=== PATIENT | female | born 1965 | race Caucasian/White ===

== ENCOUNTER 2018-11-27 09:58 | Inpatient (IN) ==
[2018-11-27] MEDS ORDERED: NS 1,000 ML IV ONE ×2 (10:14→12:03)
[2018-11-27] MEDS ORDERED: CARDIZEM IV ONE ×3 (10:24→11:36)
--- NOTE | 2018-11-27 10:39 | Diag Imaging Result Doc PS360 ---
CHEST-2 VIEWS - 11/27/2018 INDICATION: poss pneumonia COMPARISON: 11/09/2015 FINDINGS: There is significant infiltrate in the lingula. Heart size is normal. No pneumothorax or pleural effusion. IMPRESSION: Lingular pneumonia. Electronically signed by Virgil Boss 11/27/2018 10:36 AM
[2018-11-27 10:52] LABS: BASO# 0.04 X1000 (0.0-0.2); BASO% 0.2 % (0.0-0.8); EOS# 0.31 X1000 (0.0-0.7); EOS% 1.8 % (0.0-10.0); HEMATOCRIT 29.1 % (37.0-47.0); HEMOGLOBIN 8.7 g/dL (12.0-16.0); IMM GRAN# 0.06 X1000 (0.0-0.04); IMM GRAN% 0.3 % (0.0-0.5); LYMPH# 2.29 X1000 (1.2-3.4); LYMPH% 13.1 % (20.5-51.1); MCH 23.6 PG (27-31); MCHC 29.9 g/dL (33-37); MCV 79.1 FL (81-99); MONO# 0.99 X1000 (0.11-0.59); MONO% 5.7 % (1.7-9.3); MPV 10.7 FL (7.4-10.4); NEUT# 13.76 X1000 (1.4-6.5); NEUT% 78.9 % (42.2-75.2); PLT 269 X1000 (130-400); RBC 3.68 XMIL (4.2-5.4); RDW 15.6 % (11.5-14.5); WBC 17.45 X1000 (4.8-10.8)
[2018-11-27] MEDS ORDERED: VANCOMYCIN 1 GM/NS 1 GM/250 ML IVPB IV ONE (11:01)
[2018-11-27] MEDS ORDERED: ZOSYN 3.375 GM in NS 50 ML IV ONE (11:01)
[2018-11-27 11:17] LABS: ALBUMIN 3.7 g/dL (3.5-5.0); CALCIUM 9.1 mg/dL (8.8-10.2); CREATININE 1.7 mg/dL (0.5-0.9); POTASSIUM 4.8 mmol/L (3.5-5.1); TOTAL BILIRUBIN 0.34 mg/dL (0.20-1.00); TOTAL PROTEIN 7.5 g/dL (6.3-8.3)
[2018-11-27 11:38] LABS: INR 1.57
[2018-11-27 11:39] LABS: PTT 45.9 Seconds (22.3-41.8)
--- NOTE | 2018-11-27 11:42 | PROVIDER DOCUMENTATION ---
This chart was entered by Monika Ward Scribe, acting as scribe for Moses Irwin PA. HPI-General Adult - General Chief Complaint: Flu Symptoms Stated Complaint: PNEUMONIA DR-REF Time Seen by Provider: 11/27/18 10:12 Source: patient Allergies/Adverse Reactions: Patient Allergies Allergy/AdvReac Type Severity Reaction Status Date / Time cephalexin monohydrate * Allergy Intermediate RASH Verified 02/25/13 08:17 [From Keflex] Home Medications: Home Medication List Medication Instructions Recorded Confirmed Last Taken Type Bupropion HCl [Bupropion Xl] 150 mg PO QAM 02/25/13 11/09/15 11/09/15 07:30 History Venlafaxine E.r. [Effexor Xr] 150 mg PO QAM 02/25/13 11/09/15 11/09/15 07:30 History Digoxin [Lanoxin] 250 microgm PO DAILY #30 tablet 05/08/15 11/09/15 11/09/15 07: 30 Rx Rivaroxaban [Xarelto] 20 mg PO WSUPPER #30 tablet 05/08/15 11/09/15 11/08/15 Rx Magnesium 1 tab PO BID 11/09/15 11/09/15 11/09/15 07:30 History ATORVAstatin [Lipitor] 20 mg PO QHS #30 tablet 11/14/15 Unknown Rx Carvedilol [Coreg] 25 mg PO BID #60 tablet 11/14/15 Unknown Rx Insulin Glargine,Hum.rec.anlog 90 unit SQ HS #30 insuln.pen 11/14/15 Unknown Rx [Lantus Solostar] Insulin Lispro [Humalog Kwikpen] 25 unit SQ TID #90 insuln.pen 11/14/15 Unknown Rx LISINOpril [Prinivil] 20 mg PO QAM #30 tablet 11/14/15 Unknown Rx - History of Present Illness -Gen Adult Nature of Presenting Problems: 53 y/o female presents to ED with lightheadedness and cough onset 2 days ago. Pt reports she was seen at urgent care this morning, but was referred to ED after negative flu test, cxr that showed L lower lobe pneumonia, and elevated WBC. Pt is alert and oriented. Location of Pain/Injury: reports: none Pain Radiation: reports: no radiation Quality of Pain: reports: none Severity: reports: moderate Onset/Duration: reports: 2 days ago Timing: reports: still present, getting worse Context/Activities at Onset: reports: none Modifying Factors: improves with: nothing Associated Symptoms: reports: cough, other (lightheaded) Similar Symptoms Previously?: No Recently seen or treated by another doctor?: Yes (urgent care just [facility]) Review of Systems - Adult - REVIEW OF SYSTEMS - ADULT Constitutional: denies: chills, fever Eyes: reports: no symptoms reported Ears, Nose, Mouth & Throat: reports: no symptoms reported Cardiovascular: denies: chest pain, palpitations Respiratory: reports: cough. denies: shortness of breath Gastrointestinal: denies: abdominal pain, diarrhea, nausea, vomiting Genitourinary: reports: no symptoms reported Musculoskeletal: denies: back pain, joint pain Integumentary: reports: no symptoms reported Neurological: reports: other (lightheaded). denies: dizziness/vertigo, seizure Psychiatric: reports: no symptoms reported Endocrine: reports: no symptoms reported Hematologic/Lymphatic: reports: no symptoms reported Allergic/Immunologic: reports: no symptoms reported All Other Systems: Reviewed and Negative Past History - Adult - PAST MEDICAL HISTORY-ADULT Review of Records: reports: Old Records Reviewed, Nursing Assessment Review, Medications Reviewed Major Childhood Illnesses: reports: denies history Cardiovascular: reports: A-Fib, HTN Psychiatric: reports: depression Endocrine/Immune: reports: Diabetes - PRIOR SURGERIES/PROCEDURES Surgical/Procedure History: reports: cholecystectomy, hysterectomy, BTL, orthopedic (extremity) (bilateral wrist), back/neck (back x2) - IMMUNIZATION STATUS Childhood Immunizations: See Nurse Assessment Flu Vaccine: See Nurse Assessment - FAMILY HISTORY Family History: reviewed, not pertinent - SOCIAL HISTORY Smoking: non-smoker Substance Use: none/never Alcohol Use Frequency: never Living Situation: family Physical Exam-General - PHYSICAL EXAM-ADULT Initial Vital Signs Reviewed: Yes - CONSTITUTIONAL General Appearance: appears well, alert, no apparent distress - EYES Eyes: PERRL/EOMI, pink conjunctivae - HEAD, EARS, NOSE, MOUTH & THROAT HENMT: normocephalic/atraumatic, moist mucous membranes, normal ENT inspection - NECK Neck: non-tender, full range of motion - RESPIRATORY Respiratory: chest non-tender, normal breath sounds, rhonchi - CARDIOVASCULAR Cardiovascular: tachycardia (afib/RVR) - GASTROINTESTINAL (ABDOMEN) Abdominal Exam: normal bowel sounds, non tender, soft - MUSCULOSKELETAL Back Exam: normal inspection, no CVA tenderness Extremity: normal range of motion, non-tender, normal gait - SKIN Integumentary: normal color, warm/dry - NEUROLOGIC Neurologic: grossly normal - PSYCHIATRIC Psych/Mental Status: normal mood/affect, normal thought content, normal thought process Progress - PLAN OF CARE/RESULTS Progress/Plan/Lab Results: Vital Signs - 8 hr 11/27/18 10:05 Temperature 97.8 F Pulse Rate 143 H Respiratory Rate 24 Blood Pressure 123/72 O2 Sat by Pulse Oximetry 98 Orders Category Date Time Status Saline Loc NOW Care 11/27/18 10:13 Active CHEST-2 VIEWS [RAD] Stat Exams 11/27/18 10:14 Ordered BLOOD CULTURE [BLDCUL] Stat Lab 11/27/18 10:14 Uncollected CBC WITH ELECTRONIC DIFF [HEME] Stat Lab 11/27/18 10:13 Uncollected CK PROFILE [SP CHEM] Stat Lab 11/27/18 10:13 Ordered COMPREHENSIVE METABOLIC PANEL [CHEM] Stat Lab 11/27/18 10:13 Uncollected LACTATE, PLASMA [CHEM] Stat Lab 11/27/18 10:14 Uncollected PROTIME WITH INR [COAG] Stat Lab 11/27/18 10:14 Ordered PTT [COAG] Stat Lab 11/27/18 10:14 Ordered 0.9% Sodium Chloride Inj [Ns] 1,000 ml Med 11/27/18 10:14 Active IV 999 mls/hr Diltiazem [Cardizem] Med 11/27/18 10:24 Discontinued 10 mg IV NOW ONE EKG [EKG] Stat Ther 11/27/18 10:13 Ordered Laboratory Tests 11/27/18 11/27/18 10:20 10:20 WBC 17.45 H RBC 3.68 L Hgb 8.7 L Hct 29.1 L MCV 79.1 L MCH 23.6 L MCHC 29.9 L RDW Std Deviation 15.6 H Plt Count 269 MPV 10.7 H Immature Gran % (Auto) 0.3 Neut % (Auto) 78.9 H Lymph % (Auto) 13.1 L [place] % (Auto) 5.7 Eos % (Auto) 1.8 Baso % (Auto) 0.2 Immature Gran # (Auto) 0.06 H Neut # (Auto) 13.76 H Lymph # (Auto) 2.29 [place] # (Auto) 0.99 H Eos # (Auto) 0.31 Baso # (Auto) 0.04 Plasma Lactate 2.0 Pt has lingular PNA and also A-fib AVR. Will admit to hospitalist service. Discussed case c Dr. Amador who is in agreement c order and plan or care. Result Diagrams: 11/27/18 10:20 11/27/18 10:20 - EKG 1 Time of EKG reading by physician:: 10:20 EKG Read and Signed by:: Frandy Amador EKG Interpretation (*Must complete 3 of following elements*): Abnormal Rate: 132 Rhythm: Afib w/ RVR [place]: normal QRS: normal [place] Interval: normal ST Wave: normal - XRAY 1 XRAY Study: Chest Impression: Abnormal (FINDINGS: There is significant infiltrate in the lingula. Heart size is normal. No pneumothorax or pleural effusion. IMPRESSION: Lingular pneumonia. Electronically signed by Virgil Boss 11/27/2018 10:36 AM) - CONSULTS/PCP/HOSPITALIST Notification #1 *Consult/PCP/Hospitalist*: REJI Schmidt for hospitalist Time Discussed: 11:36 Reason/Comments: Pneumonia, afib RVR Consult Disposition: Admit Departure - Departure Date of Disposition Decision: 11/27/18 Time of Disposition Decision: 11:36 DIAGNOSIS: Atrial fibrillation with RVR Pneumonia Qualifiers: Pneumonia type: due to unspecified organism Laterality: left Lung location: unspecified part of lung Qualified Code(s): J18.9 - Pneumonia, unspecified organism Disposition: ADMITTED INPATIENT 09 Certified Medical Emergency: Emergent Condition: Fair Additional Freetext Instructions: ED Follow Up Instructions: You have been treated by a care provider in the Emergency Department. These instructions are being provided to you so you can have an understanding of how to care for yourself upon discharge. Upon discharge from the Emergency Department, you are responsible for making arrangements for follow-up care by a physician of your choice. Take all prescribed medications as directed. Return to the Emergency Department immediately for any new or worsening symptoms. You may call the Physician Referral phone number at [phone] to obtain a list of Physicians who are taking new patients. Referrals and Follow-Ups: None,PCP [NON-STAFF PROVIDER] - Discharge Education: Atrial Fibrillation, [id number] - Critical Care Note This patient required my direct & personal management of CC.: No Attestation - Physician/ TYRELL Attestation Patient care was provided by Advanced Practice Provider:: Yes Advanced Practice Provider:: Moses Irwin Advanced Practice Provider documentation review:: The Mid-level provider documentation, treatment plan and medical decision making was reviewed by the physician who agrees with all treatment and medical decision making by the MLP. The physician spent face to face time with patient:: No Advanced Practice Provider documentation review:: Supervising physician onsite and consulted in the evaluation and care of this patient. The physician did not have a face to face encounter with the patient. This chart was documented by the indicated scribe, (Monika Ward Scribe) and accurately reflects the services I performed and decisions made by me, Moses Irwin PA, as attested by the provider's signature.
[2018-11-27 12:37] LABS: HEMOGLOBIN A1C 6.3 % (4.8-6.0)
[2018-11-27 12:38] LABS: URINE SOURCE CLEAN CATCH
[2018-11-27] MEDS: CARDIZEM 125 MG in NS 100 ML IV SCH ×2 (12:56→20:31)
[2018-11-27 13:11] LABS: BILIRUBIN URINE NEGATIVE (NEGATIVE); BLOOD URINE SMALL (NEGATIVE); COLOR YELLOW; GLUCOSE URINE NEGATIVE (NEGATIVE); KETONE URINE NEGATIVE (NEGATIVE); LEUKOCYTES URINE SMALL (NEGATIVE); NITRITE URINE NEGATIVE (NEGATIVE); PROTEIN URINE 300 mg/dL (NEGATIVE); SP GRAVITY URINE 1.016; TURBIDITY URINE HAZY (CLEAR); UROBILINOGEN URINE NORMAL (NORMAL)
[2018-11-27 13:12] LABS: UR EPITHELIAL CELLS >10 /HPF (<10); URINE BACTERIA NEGATIVE /HPF; URINE RBC <10 /HPF (<10); URINE WBC <10 /HPF (<10)
--- NOTE | 2018-11-27 15:19 | HISTORY AND PHYSICAL ---
PRIMARY CARE PROVIDER: REJI Oglesby CHIEF COMPLAINT: Lightheadedness and cough. HISTORY OF PRESENT ILLNESS: She was treated for bronchitis 2 weeks ago with antibiotics and steroids, she failed to improve with symptoms, and over the past few days she has been having lightheadedness, cough, a subjective fever, and muscle aches and came to a local Urgent Care who performed an x-ray and found that she had pneumonia and heart rate was in the 140s. Their recommendation was for her to come to the closest E.R. and she came to our facility. In the E.R. she was found to have lingular pneumonia on chest x-ray and also found to be in atrial fibrillation with RVR. She carries a history of paroxysmal atrial fibrillation and has had multiple ablations. She also has type 2 diabetes, hypothyroidism, and morbid obesity. Cultures have been obtained and she has been started on broad-spectrum antibiotics. She will be admitted for further treatment and evaluation. PAST MEDICAL HISTORY: 1. Chronic kidney disease, she sees Dr. Mcghee for CKD looks to be stage 3 or 4. 2. Paroxysmal atrial fibrillation status post multiple ablations, followed by Dr. Woodson. 3. Type 2 diabetes requiring insulin. 4. Essential hypertension. 5. Morbid obesity. SURGICAL HISTORY: She has had ablations in the past, surgery on both wrists, back surgery times 2, tubal ligation, hysterectomy, and cholecystectomy. SOCIAL HISTORY: She denies tobacco, alcohol, or drug use. She is . Her is at the bedside. She is on disability. FAMILY HISTORY: Father from a [place] in his 80s. Mother from metastatic pancreatic cancer. ALLERGIES: Keflex. HOME MEDICATIONS: Home medications have not been compiled by the nursing staff as of yet. REVIEW OF SYSTEMS: A 14 point review of systems was obtained and found to be negative with the exception of the HPI. PHYSICAL EXAMINATION: VITAL SIGNS: Blood pressure is 126/73, heart rate 129, respiratory rate 26, O2 sat 99% on nasal cannula, and temperature 97.8. GENERAL: Morbidly obese female lying in a hospital in no acute distress. NEUROLOGIC: Awake, alert, and oriented. Follows commands. No focal deficits. HEENT: The head is atraumatic and normocephalic. Her pupils are equal, round, and reactive to light. Oral mucosa is moist. Posterior oropharynx is erythematous but no pustules are noted. NECK: Anterior cervical lymphadenopathy is appreciated. There is no JVD. CHEST: Essentially clear to auscultation bilaterally. CV: Tachy and irregular. S1, S2 is noted. GI: Soft, nondistended, and nontender. Bowel sounds are positive. EXTREMITIES: No edema. Pulses are 2+ bilaterally. DIAGNOSTIC DATA: Chest x-ray shows lingular pneumonia. EKG shows atrial fibrillation with RVR. WBC is 17.45, hemoglobin 8.7, hematocrit 29.1, MCV 79.1, and platelet count 269. INR is 1.57. Sodium is 139, potassium 4.8, chloride 101, CO2 21, anion gap 17, BUN 43, creatinine 1.7, glucose 135, hemoglobin A1c 6.3, calcium 9.1, AST 9, ALT 18, ALK PHOS 115, and albumin 3.7. UA is pending. ASSESSMENT AND PLAN: 1. Community-acquired pneumonia: Blood cultures have been obtained. We will start antibiotics renally dosed. Continue IV fluids, breathing treatments, and aggressive pulmonary toilet. Check a chest x-ray in the morning. 2. Paroxysmal atrial fibrillation with rapid ventricular response: Cardizem bolus and drip have been start. She denies any chest pain. She is on home anticoagulation which we will continue once reconciled. We will consult Cardiology. Check thyroid function. Monitor telemetry. 3. Diabetes mellitus: Pattern sugar sliding scale insulin. A1c reveals adequate control of her glucose. 4. Chronic kidney disease: Creatinine appears to be at baseline. We will continue IV fluids and avoidance of any nephrotoxins. We will continue to monitor her electrolytes and fluid volume status. 5. Microcytic anemia: We will check iron studies and treat accordingly. She denies any blood loss. 6. Deep vein thrombosis prophylaxis with novel anticoagulant which she takes at home. Further recommendations to follow. Dictated by REJI Wiggins for Tierra Osborne MD cc: REJI Wiggins MD Amanda K. Anderson, CRNP I performed a face to face encounter on the patient. I reviewed the labs and imaging on the patient. I agree with the H&P as dictated. The patient presented to the hospital with a chief complaint of a productive cough and weakness. In the ER, a chest x ray was done which showed pneumonia. The patient was also noted to be in atrial fibrillation with rvr. On exam, the patient is alert and oriented x 4. Her breath sounds are coarse with diminished breath sounds at the bases. Her heart is irregularly irregular on auscultation. The patient has pneumonia and afib with rvr. She will be started on a cardizem drip and cardiology will be consulted. Blood and sputum cultures have been obtained and the patient will be started on broad spectrum antibiotics. The patient will be admitted to CICU. SHRUTHI
[2018-11-27] MEDS: XOPENEX NEB INH SCH ×3 (15:23→23:30)
[2018-11-27] MEDS ORDERED: LANOXIN IV ONE ×2 (16:04→18:04)
[2018-11-27] MEDS: ZOSYN 2.25 GM in NS 50 ML IV SCH (20:00)
[2018-11-28] MEDS: ZOSYN 2.25 GM in NS 50 ML IV SCH ×3 (03:10→20:59)
[2018-11-28] MEDS: XOPENEX NEB INH SCH ×6 (03:42→23:46)
[2018-11-28] MEDS: HUMALOG SUBQ SCH ×7 (05:39→21:01)
[2018-11-28] MEDS: CARDIZEM 125 MG in NS 100 ML IV SCH (05:39)
[2018-11-28 05:58] LABS: BASO# 0.05 X1000 (0.0-0.2); BASO% 0.4 % (0.0-0.8); EOS# 0.54 X1000 (0.0-0.7); HEMATOCRIT 26.6 % (37.0-47.0); HEMOGLOBIN 7.9 g/dL (12.0-16.0); IMM GRAN# 0.03 X1000 (0.0-0.04); IMM GRAN% 0.2 % (0.0-0.5); LYMPH# 2.55 X1000 (1.2-3.4); MCH 23.7 PG (27-31); MCHC 29.7 g/dL (33-37); MCV 79.6 FL (81-99); MONO# 0.81 X1000 (0.11-0.59); MPV 10.3 FL (7.4-10.4); NEUT# 9.44 X1000 (1.4-6.5); NEUT% 70.4 % (42.2-75.2); PLT 250 X1000 (130-400); RBC 3.34 XMIL (4.2-5.4); RDW 15.5 % (11.5-14.5); WBC 13.42 X1000 (4.8-10.8)
[2018-11-28 06:22] LABS: CALCIUM 7.9 mg/dL (8.8-10.2); CREATININE 1.8 mg/dL (0.5-0.9); POTASSIUM 4.5 mmol/L (3.5-5.1)
[2018-11-28 07:07] LABS: FERRITIN 154 ng/mL (13-150)
[2018-11-28] MEDS ORDERED: ROBITUSSIN-DM PO PRN (09:05)
[2018-11-28] MEDS: ZYVOX 600 MG/D5W 600 MG/300 ML IVPB IV SCH ×2 (09:25→21:00)
[2018-11-28] MEDS ORDERED: VICTOZA SUBQ SCH (10:00)
[2018-11-28] MEDS: ICAR-C PO SCH ×2 (10:59→21:01)
[2018-11-28] MEDS ORDERED: INSULIN PEN NEEDLES ONE (11:07)
[2018-11-28] MEDS: TESSALON PO SCH ×2 (12:00→21:01)
--- NOTE | 2018-11-28 12:08 | Diag Imaging Result Doc PS360 ---
KNEE 3 VIEWS RIGHT - 11/28/2018 INDICATION: pain and swelling TECHNIQUE: Three views COMPARISON: None FINDINGS: There is advanced osteoarthritis of the knee. No fracture or dislocation. There is a moderate nonspecific joint effusion. There are probably varicose veins at the medial knee and leg. IMPRESSION: Nonspecific findings. Electronically signed by Virgil Boss 11/28/2018 12:06 PM
[2018-11-28] MEDS: TRANDATE PO SCH ×2 (14:28→21:00)
--- NOTE | 2018-11-28 14:56 | CARDIOLOGY CONSULTATION ---
DATE: 11/28/2018 REASON FOR CONSULT: Cardiology was consulted for atrial fibrillation. HISTORY OF PRESENT ILLNESS: Patient is diagnosed to have lingular pneumonia, is admitted, is on antibiotics as well as on Cardizem drip. The patient was treated for bronchitis 2 weeks with antibiotics and steroids. She failed to improve with her symptoms. She continues to have increasing episodes of shortness of breath. Chest x-ray revealed pneumonia with an elevated heart rate as well. Patient was sent to the emergency room and was admitted. The patient also was recently diagnosed to have worsening kidney disease and has an appointment to see Dr. Mcghee. She has chronic renal insufficiency. As far as atrial fibrillation is concerned, she has had an ablation done on 2 occasions in the last 3-4 years and has had multiple cardioversions and is followed by Dr. Woodson in our office. Since the last ablation about a year ago she has not had any palpitations. However, she does not perceive significant palpitations when she does have them. She has also undergone cardiac catheterization and cardioversions in the past. She has not been on any antiarrhythmic medications. She has only been on beta-blockers and has been taking Eliquis for the last few years. There is no obvious bleeding diathesis at the present time. A year and a half back she had some hematuria she states; however, no further bleeding since then. She does not perceive any palpitations; however, recently she has noticed some palpitations. She has not had any palpitations in the last year. She has shortness of breath which has worsened. She denies chest pain. PAST MEDICAL HISTORY: 1. She had a cardiac catheterization 11/13/2015 which revealed left main artery was normal. Left anterior descending artery was normal. Left ventricular circumflex, minor luminal irregularities. Right coronary artery, proximal 20 to 30% stenosis. Otherwise there was no significant abnormality noted. 2. She had an echocardiogram 11/10/2015 which revealed an ejection fraction of 55 to 60% at that time. She also had a transesophageal echocardiogram and had an ejection fraction of 45 to 50% in 2016 and she had undergone cardioversion at that time. 3. Two ablations done at [facility]. 4. Cardioversions in the past. 5. Diabetes. 6. Renal insufficiency. 7. Hypertension. 8. Morbid obesity. 9. Anemia. 10. The patient has had surgery on both wrists, back surgery, tubal ligation, hysterectomy, and cholecystectomy. SOCIAL HISTORY: She denies tobacco or illicit drug abuse. FAMILY HISTORY: Father from myocardial infarction in his 80s. HOME MEDICATIONS: Bupropion 150, Effexor 150, lisinopril 25 mg subcutaneously t.i.d., hydrochlorothiazide 25, labetalol 200 b.i.d., Victoza 1.8, Eliquis 5 mg p.o. b.i.d., atorvastatin 20, Lantus insulin, lisinopril 40. ALLERGIES: She is allergic to cephalexin. PHYSICAL EXAMINATION: Vital Signs: Blood pressure was 150/69. Cardiovascular system: First and second heart sounds were heard. There was no S3 gallop. The patient had an irregular heart rate. Respiratory System: Distant breath sounds with a few scattered wheezes. Abdomen: Obese, soft, nontender. There was no guarding or rigidity. Bowel sounds were heard. Central nervous system: Alert and oriented. Was moving all 4 extremities. Extremities: Examination of her extremities revealed no edema. Peripheral pulses were palpable. IMAGING: Chest x-ray revealed lingular pneumonia. LABORATORY EXAMINATION: Chemistry: Sodium 136, potassium 4.5, BUN 47, creatinine 1.8, glucose 219, magnesium 2.1. Iron was 19 with normal of 49-151, ferritin 1,541, unsaturated iron binding was 205. WBC 13.42, when she came in WBC was 15.45, hemoglobin 7.9 hematocrit 26, platelet count of 250,000. ASSESSMENT AND PLAN: Ms. Cathi Paiz is a 53-year-old lady who has paroxysmal atrial fibrillation, has undergone ablation on 2 occasions and has been tried on multiple cardiac medications for her atrial fibrillation in the past and also has undergone cardioversion. She has a history of diabetes hypertension, obesity, and has been taking her medications regularly. She has had bronchitis recently. Was admitted with increasing shortness of breath, has lingular pneumonia, and has been started on antibiotics. From a cardiac standpoint: 1. We will get an echocardiogram to reassess cardiac and valvular function. 2. She has been started on Cardizem drip. I will discontinue the Cardizem. Put her back on her labetalol 200 mg twice daily. As far as other medications are concerned, I will look at the echocardiogram and start her on antiarrhythmic medications if required. She had been tried on multiple medications, but if the rate is under control we will continue with that. 3. She has been on Eliquis since her ablations and has had 1 episode of hematuria within the last year. However, there is no obvious GI bleed. Her hemoglobin and hematocrit revealed a hemoglobin of 7.9. Platelet counts are normal. MCV is low. Concern is of iron deficiency anemia. Given this, we will get a stool occult blood. However, GI workup may be required given that she is on Eliquis and hemoglobin and hematocrit are low, suggestive of iron deficiency anemia. 4. She has an appointment to see Dr. Mcghee. She was recently diagnosed to have renal insufficiency. We will consult Dr. Mcghee. We will also get renal ultrasound. 5. Lingular pneumonia. Continue with her antibiotics. 6. She does not have any known coronary artery disease. She had a cardiac catheterization in 2016 and as mentioned above, was unremarkable. Thank you for the consult. We will follow hospital course. cc: Jose Rafael Santana MD
--- NOTE | 2018-11-28 15:06 | PROGRESS NOTE ---
DATE: 11/28/2018 SUBJECTIVE: The patient states that she feels a lot better today. She is currently on a Cardizem drip. OBJECTIVE: Vital Signs: Temperature 98.2 degrees, blood pressure 153/69, heart rate 101, respirations 17, O2 saturation is 96% on room air. General: This is a morbidly obese female sitting up in bed in no acute distress. Heart: S1 and S2 normal. Irregularly irregular rhythm. Lungs: Diminished breath sounds bilaterally. No wheezing. No rales. Abdomen : Positive bowel sounds. Soft, nontender, nondistended. Extremities: With 1+ edema bilaterally. The patient appears to have an effusion in her right knee. Neurologic: The patient is alert and oriented x3. She is able to move all 4 extremities. LABORATORY DATA: White blood cell count 13, hemoglobin 7.9, hematocrit 26, platelets 250,000. Sodium 136, potassium 4.5, chloride 100, CO2 of 19, BUN 47, creatinine 1.8, glucose 249. ASSESSMENT AND PLAN: 1. Pneumonia. Continue with antibiotic and bronchodilator therapy. 2. Atrial fibrillation. The patient is currently on a Cardizem drip. We will await further recommendations from the computer science intern. 3. Diabetes mellitus type 2. Continue on the current insulin regimen. 4. Morbid obesity. Aware. 5. Iron deficiency anemia. Will consult GI. Start Icar-C. 6. Chronic kidney disease stage 3. Stable. Monitor closely. 7. Deep vein thrombosis prophylaxis. We will restart the patient's Eliquis. cc: Tierra Osborne MD MTDD
[2018-11-28] MEDS: BASAGLAR SUBQ SCH (20:59)
[2018-11-28] MEDS: PROTONIX IV SCH (21:00)
[2018-11-28] MEDS: PERICOLACE PO SCH (21:01)
[2018-11-28] MEDS: ELIQUIS PO SCH (21:02)
[2018-11-29] MEDS: ZOSYN 2.25 GM in NS 50 ML IV SCH ×3 (03:13→20:22)
[2018-11-29] MEDS: XOPENEX NEB INH SCH ×6 (03:24→23:11)
[2018-11-29 05:32] LABS: BASO# 0.03 X1000 (0.0-0.2); BASO% 0.3 % (0.0-0.8); EOS# 0.57 X1000 (0.0-0.7); HEMATOCRIT 25.4 % (37.0-47.0); HEMOGLOBIN 7.6 g/dL (12.0-16.0); IMM GRAN# 0.04 X1000 (0.0-0.04); IMM GRAN% 0.4 % (0.0-0.5); LYMPH# 2.25 X1000 (1.2-3.4); LYMPH% 19.9 % (20.5-51.1); MCH 23.6 PG (27-31); MCHC 29.9 g/dL (33-37); MCV 78.9 FL (81-99); MONO% 6.2 % (1.7-9.3); NEUT# 7.71 X1000 (1.4-6.5); NEUT% 68.2 % (42.2-75.2); PLT 254 X1000 (130-400); RBC 3.22 XMIL (4.2-5.4); RDW 15.3 % (11.5-14.5)
[2018-11-29 05:39] LABS: CALCIUM 8.6 mg/dL (8.8-10.2); CREATININE 2.1 mg/dL (0.5-0.9); POTASSIUM 4.3 mmol/L (3.5-5.1)
[2018-11-29] MEDS: HUMALOG SUBQ SCH ×7 (06:00→20:23)
[2018-11-29] MEDS: WELLBUTRIN XL PO SCH (08:53)
[2018-11-29] MEDS: TRANDATE PO SCH ×2 (08:53→20:23)
[2018-11-29] MEDS: ELIQUIS PO SCH ×2 (08:53→20:23)
[2018-11-29] MEDS: CENTRUM SILVER PO SCH (08:53)
[2018-11-29] MEDS: PERICOLACE PO SCH ×2 (08:53→20:23)
[2018-11-29] MEDS: TESSALON PO SCH ×3 (08:53→17:19)
[2018-11-29] MEDS: ICAR-C PO SCH ×2 (08:53→20:23)
[2018-11-29] MEDS: ZYVOX 600 MG/D5W 600 MG/300 ML IVPB IV SCH ×2 (08:53→20:23)
--- NOTE | 2018-11-29 08:53 | GASTROENTEROLOGY CONSULTATION ---
DATE: 11/28/2018 REQUESTING PHYSICIAN: Dr. Osborne. PRIMARY CARE DOCTOR: REJI Oglesby. PRIMARY COMMUNICATION ELECTRONIC TECHNICIAN: Dr. Jerome. REASON FOR CONSULTATION: Iron-deficient anemia. HISTORY OF PRESENT ILLNESS: Ms. Paiz is a 53-year-old female who was admitted on 11/27/2018 for lightheadedness and cough. According to the patient, she has bronchitis for the last 2 weeks. She is being treated with antibiotics and steroids with minimal improvement. Her symptoms persisted and she developed lightheadedness, cough, subjective fever, muscle aches and she had gone to an urgent care where they ruled out flu. She was noted to be tachycardic in the heart rate of 140s and was suggested to come to the ER. In the ER, she was diagnosed with atrial fibrillation with RVR. The patient was also noted to have anemia. Her blood count on admission was 29.1. Her MCV of 79.1. Iron studies showed a low iron percentage and low iron level. The patient has been on blood thinners in the form of Eliquis twice daily at home. She denies any nausea, vomiting, vomiting blood or passing blood in the stools. She had a colonoscopy done about [address] Jerome[address] Gastroenterology for further management of anemia. PAST MEDICAL HISTORY: 1. Chronic kidney disease. 2. Paroxysmal atrial fibrillation, status post multiple ablations, followed by Dr. Woodson. 3. Type 2 diabetes. 4. Essential hypertension. 5. Morbid obesity. 6. Hypothyroidism. PAST SURGICAL HISTORY: Ablation for atrial fibrillation in the past. Surgery in both wrists, back surgery x 2, tubal ligation, hysterectomy, cholecystectomy. SOCIAL HISTORY: She denies any tobacco, alcohol, illicit drug use. She is . She is currently on disability. FAMILY HISTORY: Father from [place] in 80s. Mother from metastatic pancreatic cancer. ALLERGIES: Keflex. MEDICATIONS IN THE HOSPITAL: Include: 1. Eliquis 5 mg p.o. b.i.d. 2. Lipitor. 3. Tessalon. 4. Bupropion XL. 5. Robitussin DM. 6. Insulin glargine. 7. Humalog sliding scale. 8. Humalog 25 units t.i.d. 9. Iron C b.i.d. 10. Labetalol. 11. Xopenex. Multivitamin. 12. Protonix b.i.d. 13. Raia Colace twice, 2 capsules p.o. b.i.d. 14. Zosyn IV q.8. 15. Linezolid 600 mg IV q.12 hours. 16. She has gotten 1 dose of digoxin per Dr. Santana and Nils. She is currently on a diabetic diet. REVIEW OF SYSTEMS: Denies any fevers, rigors, chills, chest pain. She does complain of chest congestion, chronic coughing and she denies any vomiting or passing blood in the stools or black stools. She does not recall the results of the procedure of colonoscopy done [address] Jerome[address] She has a history of arthritis. Denies any neurologic complaints. PHYSICAL EXAMINATION: Vital Signs: Temp 98.2, pulse rate 113, respiratory rate 18, blood pressure 130/61, satting 90% on room air. Body weight of 284 pounds 8 ounces. BMI of 44.6 kg. General: Obese, lying in bed, in no acute distress. HEENT: Pale conjunctivae. No icterus. Pupils equal, reactive to light. Neck: Supple. Abdomen: Obese, soft, nontender, nondistended. No guarding or rebound. Extremities: No cyanosis, clubbing. Neurologic: She is alert, awake, oriented. LABS: Hemoglobin and hematocrit is 7.9 and 26.6, white count of 13.42, platelet count of 250,000, MCV of 79.6. Sodium 137, potassium 4.5, chloride 100, bicarb 19, anion gap 17, BUN of 42, creatinine 1, glucose of 157, calcium is 7.9, magnesium of 2.1. Iron level of 19%, saturation of 8%, ferritin 154. Total bilirubin is 0.34, AST 9, ALT 18, alkaline phosphatase 150, total protein is 7.2, albumin of 3.7, B12 of 85, folate of more than 40. Urinalysis showing positive protein, small blood, small leukocytes. Her blood cultures have been drawn on 11/27/2018. They are currently pending. Her flu screen was repeated on admission which was negative for A and B. Her group A strep antigen was also negative. Urine culture was no growth. Throat culture is currently pending. IMPRESSION AND PLAN: 1. Atrial fibrillation with rapid ventricular response. She is on Cardizem drip and she got 1 dose of digoxin. She is being followed by Dr. Santana. She has a prior history of paroxysmal atrial fibrillation. She has history of previous ablation. 2. Iron deficiency anemia. We will check Hemoccult. Will be given Protonix twice daily. We will keep her on iron supplementation. She has a high risk of internal bleeding because of Eliquis. If the patient starts having any signs of active bleeding, then we have to hold Eliquis if it is okay with the Cardiology team. 3. Morbid obesity. The patient was counseled to lose weight. 4. Diabetes. Patient is being managed on insulin regimen per the primary team. 5. Bowel regimen. Aria-Colace b.i.d. 6. Gastrointestinal prophylaxis with PPIs, as above. 7. Pneumonia. As seen on x-ray which showed lingular pneumonia. She is on antibiotics with Zosyn and vancomycin. 8. Above plan of care was discussed with the patient and all questions were answered. Dr. Jerome will resume care from tomorrow. Please call us with any further questions. cc: MD Ivory Lopez CRNP Katherine Takundwa, MD Reginald D. Gladish, MD Manish Arora, MD
[2018-11-29] MEDS: PROTONIX IV SCH ×2 (09:08→20:24)
--- NOTE | 2018-11-29 09:42 | ECHO REPORT ---
ORDER DATE: 11/28/2018 ECHOCARDIOGRAPHIC MEASUREMENTS: 1. Interventricular septum 1.2. 2. Left ventricular posterior wall 0.9. 3. Diastolic diameter 5.0. 4. Left ventricular systolic diameter 3.3. 5. Left atrium 3.9. 6. Aorta 3.0. 7. Aortic valve leaflets were trileaflet. 8. Pulmonic valve was normal. Mitral valve was normal. There is trace pulmonary regurgitation. 9. There is mild left atrial enlargement. 10. There is mild mitral regurgitation. Mild tricuspid regurgitation. Peak velocity across the tricuspid valve was 3 m/sec. Pulmonary artery systolic pressure of 46 to 50 mmHg. 11. Peak velocity across the aortic valve less than 2 m/sec. By Doppler studies, there is no aortic stenosis or regurgitation. 12. Normal left ventricular cavity size. Estimated ejection fraction of 60%. Atrial fibrillation was noted. There is no pericardial effusion or obvious intracardiac mass or thrombus. cc: Jose Rafael Santana MD
--- NOTE | 2018-11-29 09:58 | NEPHROLOGY CONSULTATION ---
DATE: 11/29/2018 REASON FOR ADMISSION: Lightheadedness, and cough, and bronchitis. REASON FOR CONSULTATION: Acute on chronic kidney disease. CONSULTING PHYSICIAN: Tierra Osborne MD. HISTORY OF PRESENT ILLNESS: This is a 53-year-old female, known to our service for a new patient visit late last fall. At that time, she had a creatinine of 1.6, had normal ultrasound. She was scheduled for followup this week. The patient presented to the emergency room secondary to worsening lightheadedness and cough. She had a history of atrial fibrillation with multiple ablations as well. She had went and was told that she had pneumonia, when she was in an urgent care setting and then had a heart rate in the 140s. On admission, her creatinine was 1.7. Today, it has risen to 2.1, and we have been asked to see her for her acute on chronic kidney disease. When I see her this morning, she is awake and alert. She is able to sit up without difficulty. She has had no nausea or vomiting. She has had a little bit of shortness of breath, but no chest pain. PAST MEDICAL HISTORY: Chronic kidney disease stage 3B to 4. Last creatinine 1.6 in our office. Was to have labs and follow this week as routine, paroxysmal atrial fibrillation , has had multiple ablations, type 2 diabetes, hypertension, obesity, anxiety, depression, and hyperlipidemia. PAST SURGICAL HISTORY: She has had cardiac ablation, wrist surgery, back surgery, tubal ligation, hysterectomy, and cholecystectomy. ALLERGIES: Cephalexin. HOME MEDICATIONS: Listed as bupropion, Effexor, Humalog, HCTZ, Trandate, Victoza, Eliquis, Lipitor, Lantus, and Prinivil. FAMILY HISTORY: [place] and pancreatic cancer. SOCIAL HISTORY: No ETOH, tobacco, or illicit drug use. She is . She is on disability. REVIEW OF SYSTEMS: Pertinent positives, as noted above in HPI. PHYSICAL EXAMINATION: Vital Signs: Temperature 97.9 degrees, pulse 114, respiratory rate 19, blood pressure 154/71, intake 1.2 L. Output not measured. General: This is a middle-aged female, sitting up in bed. She is awake and alert. She is in no acute distress. HEENT: Normocephalic, atraumatic. CHELI. Conjunctivae are pale. Her oral mucosa is moist. Neck: Supple. There is no JVD. Cardiovascular: Irregularly, irregular rhythm with a tachycardic rate. Pulmonary: She is clear bilaterally. She has no increased work of breathing. She does have decreased breath sounds secondary to body habitus. There is no rales noted. Abdomen: Soft, obese, positive bowel sounds. : Voiding. Extremities: No clubbing, cyanosis. She has 1 to 2+ edema to the right lower extremity. Vascular: Changes noted. Really no edema to the left lower extremity. Integumentary: Skin is pale, warm, and dry. Neurologic: Grossly nonfocal. LAB DATA: WBC of 11.3, hemoglobin 7.6. Sodium 136, potassium 4.3, CO2 22, BUN 48, creatinine 2.1 (1.8, 1.7). Chest x-ray on admission: Infiltrate in the lingula. No pneumothorax or new pleural effusion. ASSESSMENT AND PLAN: 1. Acute on chronic kidney disease likely secondary to decreased cardiac output. The patient with atrial fibrillation with rapid ventricular response. When she came into the hospital, she was pretty much at her baseline renal function. She does have an ultrasound ordered. We will go ahead and order urine studies just to make sure that were not over looking any prerenal issue, but I really do not feel that is her problem. The patient does not have any indication for intervention in the form of dialysis at this time. We will continue to follow her closely in the hospital. 2. Medication review. She is on appropriately dosed piperacillin/tazobactam. Her Prinivil has already been held appropriately. Make no other changes. Check labs in the morning. Dictated by REJI Baker for John Mcghee MD Face to face encounter, data reviewed, discussed with Kristie Alegre on 11/29/18. I agree with the above assessment and plan of care. cc: John Mcghee MD [facility]
--- NOTE | 2018-11-29 10:07 | Diag Imaging Result Doc PS360 ---
EXAM: US RENAL 2 (RETROPER) COMPLETE HISTORY: cri/dm TECHNIQUE: Renal ultrasound COMPARISON: None. FINDINGS: The left kidney measures 12.5 x 5.6 x 4.9 cm. Borderline mild increased renal echotexture. Normal cortical thickness. No stone or hydronephrosis. No renal mass. The urinary bladder is moderately distended and is normal. The right kidney measures 11.4 x 5.9 x 5.9 cm. Normal renal echotexture and cortical thickness. Nonspecific 5 mm hyperechoic cortical density in the upper pole of the right kidney. This may simply be a calcification. No renal stone or hydronephrosis. IMPRESSION: Borderline mild increased renal echotexture, but otherwise normal exam. Electronically signed by Ld Freitas 11/29/2018 10:04 AM
--- NOTE | 2018-11-29 10:29 | EKG Report ---
Test Performed on : 11/27/2018 10:20:50 AM Test Reason : tachycardia Blood Pressure : / mmHG Vent. Rate : 132 BPM Atrial Rate : 163 BPM P-R Int : 000 ms QRS Dur : 084 ms QT Int : 318 ms P-R-T Axes : 000 019 078 degrees QTc Int : 471 ms Atrial fibrillation. with rapid ventricular response. Abnormal ECG When compared with ECG of 13-NOV-2015 06:01, Nonspecific T wave abnormality no longer evident in Inferior leads T wave inversion no longer evident in Lateral leads Unconfirmed Result
[2018-11-29 12:55] LABS: URINE SOURCE VOIDED
[2018-11-29 13:04] LABS: BILIRUBIN URINE NEGATIVE (NEGATIVE); BLOOD URINE TRACE (NEGATIVE); COLOR YELLOW; GLUCOSE URINE NEGATIVE (NEGATIVE); KETONE URINE NEGATIVE (NEGATIVE); LEUKOCYTES URINE NEGATIVE (NEGATIVE); NITRITE URINE NEGATIVE (NEGATIVE); PH URINE 5.5; PROTEIN URINE 100 mg/dL (NEGATIVE); TURBIDITY URINE CLEAR (CLEAR); UROBILINOGEN URINE NORMAL (NORMAL)
[2018-11-29 13:06] LABS: UR EPITHELIAL CELLS <10 /HPF (<10); URINE BACTERIA NEGATIVE /HPF; URINE RBC <10 /HPF (<10); URINE WBC <10 /HPF (<10)
[2018-11-29 13:13] LABS: UR CREAT RANDOM 41.4 mg/dL (11-20); UR PROT RANDOM 87.2 mg/dL
[2018-11-29] MEDS ORDERED: XYLOCAINE 1% INJ ONE (13:22)
[2018-11-29] MEDS ORDERED: DEPO-MEDROL INJ ONE (13:22)
--- NOTE | 2018-11-29 13:47 | PROGRESS NOTE ---
DATE: 11/29/2018 SUBJECTIVE: Patient is sitting up in a chair in no acute distress. She states she is feeling better. She has reported no evidence of visible blood in her stool or black stools. She had reported being treated for bronchitis as an outpatient, and symptoms did not improve. When she came in for evaluation, she was diagnosed with pneumonia. Patient was also found to have elevated heart rate, atrial fib with rapid ventricular response. She has been started on medications and has been seen by Cardiology. She has also been seen by Nephrology for chronic kidney disease. Patient was last seen in our office in 2009, when she had an EGD and colonoscopy. EGD findings had showed normal esophagus, area of erosion in antrum and normal duodenum. Colonoscopy had showed normal terminal ileum, a single polyp in the ascending colon, a polyp in the sigmoid colon and polyps in the rectum, that were ablated. Pathology showed hyperplastic polyps. At that time, she was recommended to have a follow up colonoscopy in 3 years, which would have been 2012, but she did not follow back. Records reviewed from her admission and Hemoccult stool test is negative. She is anemic, hemoglobin and hematocrit today 7.6 and 25.4, MCV 28.9. Iron is 19, ferritin 154. As noted, patient has denied any visible blood in the stool or black stool. She does report occasional constipation and takes stool softeners as needed. She denies reflux or heartburn. She does take ibuprofen on occasion for arthritis. In addition, she is on Eliquis for her atrial fibrillation. OBJECTIVE: Vital Signs: Temperature 97.6 degrees, pulse 119, respirations 16, blood pressure 135/68. General: Patient is awake, alert, in no acute distress. LABORATORY: Hematology: WBC 11.30, hemoglobin 7.6, hematocrit 25.4, MCV 78.9, platelet 254,000. Coagulation: PT 20.0, INR 1.57, PTT 45.9. Chemistry: Sodium 136, potassium 4.3, chloride 103, CO2 of 22, BUN 48, creatinine 2.1, glucose 192, calcium 8.6, magnesium 2.2. Iron 19, TIBC 224, percent saturation 8, ferritin 154, total bilirubin 0.34, AST 9, ALT 18, alkaline phosphatase 115. ASSESSMENT AND PLAN: 1. Pneumonia on antibiotics. 2. Atrial fibrillation with rapid ventricular response. Patient has been seen by Cardiology, receiving medications. 3. Iron deficiency anemia with Hemoccult stool being negative. Continue proton- pump inhibitor. Patient is not having any current active bleeding. Would recommend to continue Eliquis for now. If she starts to have active bleeding, would need to discuss holding her blood thinner. I have recommended to the patient that she avoid nonsteroidal anti- inflammatories. 4. Chronic kidney disease versus acute kidney issue. Patient has been seen by nephrology. Continue their management. We will continue to monitor hemoglobin and hematocrit. She may need a transfusion. Monitor for any signs of active bleeding. Her last colonoscopy and EGD was in 2009. Will continue to follow and further plans to be made as needed. I will discussed this case with Dr. Jerome. Dictated by REJI Roldan for Kenneth Jerome MD cc: REJI Cesar MD [facility]
--- NOTE | 2018-11-29 13:48 | PROGRESS NOTE ---
DATE: 11/27/2018 SUBJECTIVE: The patient is sitting up in the chair. She states that she is having pain in her right knee. OBJECTIVE: Vital Signs: Temperature 97.6 degrees, blood pressure 135/68, heart rate 119, respirations 16, O2 saturations 100% on room air. General: This is a morbidly obese female sitting in a chair in no acute distress. Heart: S1, S2. Normal. Tachycardic. Lungs: Equal air entry bilaterally. No wheezing. No rales. Abdomen: Positive bowel sounds. Soft, obese, nontender, nondistended. Extremities: 1+ edema in the right lower extremity. The patient also appears to have an effusion on her right knee. Neurologic: The patient is alert and oriented x4. No focal neurologic deficits noted. LABORATORIES: White blood cell count 11, hemoglobin 7.6, hematocrit 25, platelets 254,000. Sodium 136, potassium 4.3, chloride 103, CO2 22, BUN 48, creatinine 2.1, glucose 192, calcium 8.6, magnesium 2.2. ASSESSMENT AND PLAN: 1. Pneumonia. Continue with antibiotic and bronchodilator therapy. 2. Atrial fibrillation. Management as per Cardiology. 3. Right knee effusion. We will consult Orthopedic Surgery. 4. Acute kidney injury on chronic kidney disease. Nephrology has been consulted. We will await their recommendations. 5. Diabetes mellitus type 2. Continue with long-acting insulin plus sliding scale insulin. 6. Iron deficiency anemia. The patient is currently on Icar C. Gastroenterology has been consulted for further recommendations. 7. Deep vein thrombosis prophylaxis. The patient is currently on Eliquis. cc: Tierra Osborne MD [facility]TD[facility]
[2018-11-29] MEDS: MULTAQ PO SCH ×2 (15:03→20:23)
[2018-11-29] MEDS: CILOXAN OPHTH SOLN BOTH EYES SCH ×2 (15:03→20:24)
--- NOTE | 2018-11-29 15:07 | CONSULTATION ---
DATE OF CONSULTATION: 11/29/2018 CHIEF COMPLAINT: Right knee pain. HISTORY OF PRESENT ILLNESS: Ms. Paiz reports she has been having right knee pain for about a week or so. She reports it has been giving out on her from time to time. She reports it swells and then goes down every couple weeks. She has been dealing with this for some time. She reports she has a history of rapid heart rate with RVR. She also has type 2 diabetes, hypothyroidism, morbid obesity. Blood cultures were obtained in the emergency department, and she was started on broad-spectrum antibiotics. She was seen in the Urgent Care about a week or 2 ago, and they did an chest x-ray and found that she had pneumonia. PAST MEDICAL HISTORY: 1. Chronic kidney disease. 2. Atrial fibrillation. 3. Diabetes, type 2. 4. Hypertension. 5. Morbid obesity. SURGICAL HISTORY: She has had ablations in the past, surgery on both wrists, back surgery multiple times, tubal ligation, hysterectomy, and cholecystectomy. SOCIAL HISTORY: She denies tobacco, alcohol, or drug use. She is . She lives at home with her . She is on disability. FAMILY HISTORY: Father had a heart attack in his 80s. Mother from pancreatic cancer. ALLERGIES: Keflex. HOME MEDICATIONS: Eliquis 5 mg b.i.d. Lipitor 20 mg daily. Wellbutrin XL 150 mg daily. Multaq 400 mg b.i.d. Humalog sliding scale insulin. Labetalol 200 mg b.i.d. Multivitamin daily. Protonix 40 mg daily. REVIEW OF SYSTEMS: A 14 point review of systems was obtained and found to be negative with the exception of the HPI. PHYSICAL EXAMINATION: Vital Signs: Temperature 97.6 degrees, pulse rate 119, respiratory rate 16, blood pressure 135/68, oxygen 100% on room air. General: The patient is awake and alert, lying in the hospital bed. She is not in any acute distress. Neurologic: The patient follows commands, and there are no focal deficits. HEENT: Head is atraumatic, normocephalic. PERRLA. Oral mucosa is moist. Neck: Supple. Chest: There is equal chest expansion, rise, and fall. Cardiovascular: She is slightly tachycardic. Abdomen: Soft, nontender. Extremities: On right lower extremity exam, there is good range of motion to the right knee. There is a +1 effusion to the right knee. There is some mild medial joint line tenderness. There is a questionable Santino's test. There is a negative Mario test. There is some mild medial and lateral joint line tenderness. There is no redness or signs of infection. There is a negative Emiliano sign. DIAGNOSTIC STUDIES: The chest x-ray shows a lingular pneumonia. EKG had previously shown atrial fibrillation with RVR. White blood cell 1.3, hemoglobin 7.6, hematocrit 25.4. Sodium 136, potassium 4.3, chloride 103, BUN 48, creatinine 2.1, glucose 192. ASSESSMENT AND PLAN: 1. Community-acquired pneumonia. Continue hospital care. 2. Degenerative joint disease (DJD), right knee with effusion. We will plan on aspirating the right knee at this time and obtaining cultures, Gram stain, cell count, and crystals. If the fluid is clear, we may inject the knee with Depo-Medrol. Thank you again for the consult. Dictated by REJI Martini for Juaquin Mckeon MD cc: REJI Martini MD
[2018-11-29 17:00] LABS: BODY FLUID SOURCE SYNOVIAL FLUID; MONOS 12 %; POLYS 88 %; WBC BF 229 /cumm
[2018-11-29] MEDS: BASAGLAR SUBQ SCH (20:22)
[2018-11-29] MEDS: LIPITOR PO SCH (20:23)
[2018-11-30] MEDS: CILOXAN OPHTH SOLN BOTH EYES SCH ×6 (01:18→20:43)
[2018-11-30] MEDS: ZOSYN 2.25 GM in NS 50 ML IV SCH ×3 (03:09→20:40)
[2018-11-30] MEDS: XOPENEX NEB INH SCH ×6 (03:29→23:54)
[2018-11-30 05:38] LABS: BASO# 0.01 X1000 (0.0-0.2); BASO% 0.1 % (0.0-0.8); EOS# 0.01 X1000 (0.0-0.7); EOS% 0.1 % (0.0-10.0); HEMATOCRIT 26.3 % (37.0-47.0); HEMOGLOBIN 7.9 g/dL (12.0-16.0); IMM GRAN# 0.11 X1000 (0.0-0.04); IMM GRAN% 0.9 % (0.0-0.5); LYMPH# 0.94 X1000 (1.2-3.4); LYMPH% 7.4 % (20.5-51.1); MCH 23.5 PG (27-31); MCV 78.3 FL (81-99); MONO# 0.24 X1000 (0.11-0.59); MONO% 1.9 % (1.7-9.3); MPV 10.5 FL (7.4-10.4); NEUT# 11.46 X1000 (1.4-6.5); NEUT% 89.6 % (42.2-75.2); PLT 262 X1000 (130-400); RBC 3.36 XMIL (4.2-5.4); RDW 15.1 % (11.5-14.5); WBC 12.77 X1000 (4.8-10.8)
[2018-11-30 06:27] LABS: CALCIUM 8.1 mg/dL (8.8-10.2); CREATININE 2.1 mg/dL (0.5-0.9)
[2018-11-30] MEDS: HUMALOG SUBQ SCH ×7 (06:38→20:43)
[2018-11-30 06:49] LABS: LYMPHS 10 % (21-51); SEGS 86 % (42-75)
[2018-11-30] MEDS ORDERED: INSULIN PEN NEEDLES ONE (08:24)
[2018-11-30] MEDS: ZYVOX 600 MG/D5W 600 MG/300 ML IVPB IV SCH ×2 (08:34→20:41)
[2018-11-30] MEDS: ICAR-C PO SCH ×2 (08:35→20:42)
[2018-11-30] MEDS: PROTONIX IV SCH ×2 (08:35→20:42)
[2018-11-30] MEDS: PERICOLACE PO SCH ×2 (08:35→20:41)
[2018-11-30] MEDS: CENTRUM SILVER PO SCH (08:35)
[2018-11-30] MEDS: MULTAQ PO SCH ×2 (08:35→20:42)
[2018-11-30] MEDS: TESSALON PO SCH ×3 (08:35→16:54)
[2018-11-30] MEDS: WELLBUTRIN XL PO SCH (08:35)
[2018-11-30] MEDS: TRANDATE PO SCH ×2 (08:35→20:42)
[2018-11-30] MEDS: ELIQUIS PO SCH ×2 (08:35→20:42)
--- NOTE | 2018-11-30 10:43 | PROGRESS NOTE ---
DATE: 11/30/2018 SUBJECTIVE: The patient is lying in the bed in no acute distress. She has denied any visible blood in the stool or black stools. She denies abdominal pain. She has been seen by Dr. Mckeon for right knee swelling with effusion, and I believe they are planning on aspirating the right knee and obtaining cultures. OBJECTIVE: Vital Signs: Temperature 98.0, pulse 105, respirations 16, blood pressure 147/82. LABORATORY: Hematology: WBC 12.77, hemoglobin 7.9, hematocrit 26.3, MCV 78.3, platelets 262,000. Chemistry: Sodium 131, potassium 5.0, chloride 100, CO2 of 19, BUN 49, creatinine 2.1, glucose 408. ASSESSMENT AND PLAN: 1. Pneumonia on antibiotics. 2. Atrial fibrillation with rapid ventricular response. Patient is on medications following with Cardiology. 3. Iron-deficiency anemia. Hemoccult stool is negative. Patient has not noticed any visible blood in the stool or black stools. Patient is on Eliquis. I have recommended she avoid any anti-inflammatory medications. She had been taking some aspirin. Continue PPI. We will continue to monitor her hemoglobin and hematocrit and transfuse packed red blood cells if needed. Her Hemoccult stool test was negative, and she has not noticed any visible signs of blood in the stool or black stools. We will follow for now. She may need an EGD and/or colonoscopy in the future. She is past due for her colonoscopy which should have been done in 2012 but would recommend recovery from her pneumonia and recent exacerbation of atrial fibrillation unless she is having active bleeding. We will continue to follow and further plans will be made according to her progress. I have discussed this case with Dr. Jerome. Dictated by REJI Roldan for Kenneth Jerome MD cc: REJI Cesar MD
--- NOTE | 2018-11-30 14:33 | NEPHROLOGY PROGRESS NOTE ---
DATE: 11/30/2018 SUBJECTIVE: Patient is sitting up in bed. No issues overnight. OBJECTIVE: Vital Signs: Temperature 97.8 degrees, pulse 107, respiratory rate 17, Intake 960 mL. Output not measured. General: Middle-aged female, sitting up in bed. No acute distress. HEENT: Normocephalic, atraumatic. CHELI. Neck: Supple. No JVD. Cardiovascular: Irregularly regular rhythm. Still with tachycardiac rate. Pulmonary: Clear bilaterally. No increased work of breathing. Abdomen: Obese, soft, positive bowel sounds. : Not inspected. Extremities: With 1 to 2+ edema, right greater than left. Integumentary: Skin is warm and dry with vascular changes noted of lower extremities. LABORATORY DATA: WBC of 12.7, hemoglobin 7.9. Sodium 131, potassium 5, CO2 of 19, creatinine 2.1. Iron saturation is 8. Her total iron is 19. ASSESSMENT AND PLAN: 1. [id number] renal disease in patient with atrial fibrillation with RVR. No significant change with renal function overnight. No indication for intervention other than current treatment plan. We will continue to monitor. 2. Electrolytes. Acid base balance acceptable. 3. Anemia, iron deficiency. She has been placed on iron supplementation. Continue to monitor. Her hemoglobin has been stable overnight. Dictated by REJI Baker for John Mcghee MD Face to face encounter, data reviewed, discussed with Kristie Alegre on 11/30/18. I agree with the above assessment and plan of care. cc: John Mcghee MD [facility]
--- NOTE | 2018-11-30 17:32 | PROGRESS NOTE ---
DATE: 11/30/2018 SUBJECTIVE: Patient is resting in bed, not in distress. OBJECTIVE: Vital signs: Temperature 97.6 degrees, pulse 108, respirations 18, blood pressure is 121/54, O2 saturation is 98%. HEENT: Atraumatic, normocephalic. Cardiovascular: S1, S2. Irregular Respiratory: Good air entry bilaterally. Abdomen: Obese, nontender. No masses felt. Extremities: Has trace edema in the lower extremities. Central nervous system: No obvious focal deficit noted. LABORATORY DATA: WBC is 12.77, hematocrit is 26.3, platelet count of 262,000. Chemistry: Sodium is 131, potassium 5.0, chloride 100, bicarb is 19, BUN is 49, creatinine is 2.1. ASSESSMENT AND PLAN: 1. Pneumonia. Continue antibiotics. 2. Atrial fibrillation. Continue rate controlling agent. Cardiology managing. 3. Acute on chronic renal failure. Follow up on renal function. 4. Diabetes mellitus. Monitor blood sugar levels as well as sliding scale insulin. 5. Iron deficiency anemia. Continue Icar C Plus. Gastroenterology consulted, I believe to rule out a bleeding lesions in the gastrointestinal system. 6. Deep vein thrombosis prophylaxis. The patient is on Eliquis. cc: You Meehan MD
[2018-11-30] MEDS: BASAGLAR SUBQ SCH (20:42)
[2018-11-30] MEDS: LIPITOR PO SCH (20:42)
[2018-12-01] MEDS: CILOXAN OPHTH SOLN BOTH EYES SCH ×4 (00:38→12:05)
[2018-12-01] MEDS: XOPENEX NEB INH SCH ×6 (02:53→23:43)
[2018-12-01] MEDS: ZOSYN 2.25 GM in NS 50 ML IV SCH ×3 (05:14→20:53)
[2018-12-01 05:54] LABS: CALCIUM 7.7 mg/dL (8.8-10.2); CREATININE 1.9 mg/dL (0.5-0.9); POTASSIUM 5.1 mmol/L (3.5-5.1)
[2018-12-01] MEDS: HUMALOG SUBQ SCH ×7 (06:26→20:52)
[2018-12-01] MEDS: ZYVOX 600 MG/D5W 600 MG/300 ML IVPB IV SCH ×2 (08:29→23:40)
[2018-12-01] MEDS: PERICOLACE PO SCH ×2 (08:31→20:51)
[2018-12-01] MEDS: WELLBUTRIN XL PO SCH (08:31)
[2018-12-01] MEDS: MULTAQ PO SCH ×2 (08:31→20:52)
[2018-12-01] MEDS: TRANDATE PO SCH ×2 (08:31→20:52)
[2018-12-01] MEDS: ICAR-C PO SCH ×2 (08:31→20:52)
[2018-12-01] MEDS: CENTRUM SILVER PO SCH (08:32)
[2018-12-01] MEDS: TESSALON PO SCH ×3 (08:32→20:52)
[2018-12-01] MEDS: ELIQUIS PO SCH ×2 (08:32→20:54)
[2018-12-01] MEDS: PROTONIX IV SCH ×2 (08:34→22:00)
--- NOTE | 2018-12-01 13:22 | NEPHROLOGY PROGRESS NOTE ---
DATE: 12/01/2018 SUBJECTIVE: Patient resting in bed. No complaints overnight. OBJECTIVE: Vital Signs: Temperature 97.8, pulse 123, respiratory rate 18, blood pressure 135/81. Intake 1.5 L. Output not measured. PHYSICAL EXAMINATION: General: Middle-aged female, resting in bed. She is awake, alert, in no acute distress. HEENT: Normocephalic, atraumatic. CHELI. Neck: Supple, without JVD. Cardiovascular: Irregularly irregular rhythm. She continues with a tachycardic rate. Pulmonary: She is clear bilaterally. She is on room air. Abdomen: Soft, obese. Positive bowel sounds. Genitourinary: Not inspected. Voiding. Extremities: No clubbing, cyanosis. Trace edema. Integumentary: Skin is pale, warm and dry. LAB DATA: Sodium 139, potassium 5.1, CO2 22, creatinine 1.9 (2.1). ASSESSMENT AND PLAN: 1. Acute on chronic renal disease in setting of atrial fibrillation with rapid ventricular response. Renal functions remain stable during the hospitalization. We will continue to monitor. No intervention other than her current plan. 2. Electrolytes, acid-base balance anemia, acceptable and has been placed on supplementation. 3. Disposition: From a renal perspective, once she is cleared by Cardiology for discharge we will simply follow her in the office within 2 to 3 weeks with labs in the interim. Dictated by REJI Baker for John Mcghee MD Face to face encounter, data reviewed, discussed with Kristie Alegre on 12/01/18. I agree with the above assessment and plan of care. cc: John Mcghee MD [facility]
--- NOTE | 2018-12-01 13:37 | PROGRESS NOTE ---
DATE: 12/01/2018 SUBJECTIVE: The patient resting on a chair, not in any obvious distress. OBJECTIVE: Vital Signs: Temperature 97.8 degrees, pulse 120, respirations 19, blood pressure is 174/79, oxygen saturation is 100%. HEENT: The patient is atraumatic, normocephalic. Cardiovascular system: S1, S2. Respiratory system: Has evidence of good air entry bilaterally. Abdomen: Obese, nontender. No masses felt. Extremities: Has edema present in both lower extremities. Central nervous system: No obvious focal deficits noted. LABORATORY DATA: Sodium is 139, potassium 5.1, chloride is 106, bicarbonate is 22. BUN is 52, creatinine is 1.9, glucose is 202. ASSESSMENT AND PLAN: 1. Pneumonia. Continue antibiotics. 2. Atrial fibrillation. Continue rate controlling agent. Cardiology following. 3. Acute on chronic disease seen by Cardiology team. 4. Acute on chronic renal failure. Follow up on renal function. 5. Diabetes mellitus. Continue blood sugar monitoring, as well as sliding scale insulin. 6. Iron deficiency anemia. Continue Icar-C Plus. Gastroenterology consulted for evaluation of the gastrointestinal system. 7. Deep vein thrombosis prophylaxis. The patient is on Eliquis. cc: You Meehna MD
--- NOTE | 2018-12-01 14:35 | PROGRESS NOTE ---
DATE: 12/01/2018 SUBJECTIVE: Patient is sitting on the side of the bed in no acute distress. She denies complaints today. OBJECTIVE: Vital Signs: Temperature 97.8 degrees, pulse 120, respirations 19, blood pressure 174/79. General: Generally, the patient is awake, alert, no acute distress. LABORATORY: Hematology: WBC 12.77, hemoglobin 7.9, hematocrit 26.3, MCV 78.3, platelets 262. Chemistry: Sodium 139, potassium 5.1, chloride 106, CO2 of 22. BUN 52, creatinine 1.9, glucose 202, calcium 7.7. ASSESSMENT AND PLAN: 1. Pneumonia on antibiotics. 2. Atrial fibrillation on medication. Following with Cardiology. 3. Acute/chronic renal disease. Continue to follow her renal function tests. 4. Anemia. Patient has had no visible bleeding. Would recommend further evaluation as an outpatient for anemia once her pneumonia and atrial fibrillation issues improve. Will continue to follow during her hospital course and further plans to be made as needed. Continue to monitor hemoglobin and hematocrit and transfuse packed red blood cells as needed. I have discussed this case with Dr. Jerome. Dictated by REJI Roldan for Kenneth Jerome MD cc: REJI Cesar MD
[2018-12-01] MEDS: LIPITOR PO SCH (20:50)
[2018-12-01] MEDS: BASAGLAR SUBQ SCH (20:53)
[2018-12-02] MEDS: XOPENEX NEB INH SCH ×6 (04:25→23:30)
[2018-12-02] MEDS: ZOSYN 2.25 GM in NS 50 ML IV SCH ×3 (04:50→20:52)
[2018-12-02] MEDS: HUMALOG SUBQ SCH ×7 (06:58→23:36)
[2018-12-02 07:18] LABS: BASO# 0.03 X1000 (0.0-0.2); BASO% 0.2 % (0.0-0.8); EOS# 0.28 X1000 (0.0-0.7); EOS% 2.3 % (0.0-10.0); HEMATOCRIT 25.4 % (37.0-47.0); HEMOGLOBIN 7.5 g/dL (12.0-16.0); IMM GRAN# 0.11 X1000 (0.0-0.04); IMM GRAN% 0.9 % (0.0-0.5); LYMPH# 2.27 X1000 (1.2-3.4); LYMPH% 18.7 % (20.5-51.1); MCH 23.4 PG (27-31); MCHC 29.5 g/dL (33-37); MCV 79.1 FL (81-99); MONO# 0.72 X1000 (0.11-0.59); MONO% 5.9 % (1.7-9.3); NEUT# 8.76 X1000 (1.4-6.5); PLT 277 X1000 (130-400); RBC 3.21 XMIL (4.2-5.4); RDW 15.6 % (11.5-14.5); WBC 12.17 X1000 (4.8-10.8)
[2018-12-02 07:45] LABS: CALCIUM 8.7 mg/dL (8.8-10.2); CREATININE 2.1 mg/dL (0.5-0.9); POTASSIUM 5.6 mmol/L (3.5-5.1)
[2018-12-02] MEDS: PERICOLACE PO SCH ×2 (08:54→20:52)
[2018-12-02] MEDS: ICAR-C PO SCH ×2 (08:54→20:53)
[2018-12-02] MEDS: ELIQUIS PO SCH ×2 (08:54→20:54)
[2018-12-02] MEDS: CENTRUM SILVER PO SCH (08:54)
[2018-12-02] MEDS: PROTONIX IV SCH ×2 (08:54→20:54)
[2018-12-02] MEDS: MULTAQ PO SCH ×2 (08:54→23:35)
[2018-12-02] MEDS: WELLBUTRIN XL PO SCH (08:55)
[2018-12-02] MEDS: SODIUM CHLORIDE 0.9% INJ SCH (08:55)
[2018-12-02] MEDS: TESSALON PO SCH ×3 (08:55→17:05)
[2018-12-02] MEDS: TRANDATE PO SCH ×2 (08:55→20:53)
[2018-12-02] MEDS: ZYVOX 600 MG/D5W 600 MG/300 ML IVPB IV SCH ×2 (10:50→23:21)
[2018-12-02] MEDS ORDERED: KAYEXALATE PO ONE (14:21)
--- NOTE | 2018-12-02 14:29 | NEPHROLOGY PROGRESS NOTE ---
DATE: 12/02/2018 TIME SEEN: 0700. SUBJECTIVE: Ms. Nascimento is resting in bed. She states that she feels like she is just a little bit better. She denies any pain or increased work of breathing. Though she states that her blood sugar has been up and down and she has an irregular heart pattern. OBJECTIVE: Vital Signs: Her last temperature 97.5, blood pressure 155/75, heart rate 123, respirations 18, she is on room air. Last recorded saturation is 97%. She has had 961 in. She has had 0 recorded out. LABS: Her sodium is 140, potassium 5.6, chloride 107, CO2 of 23, BUN 49, creatinine 2.1, glucose 323. She has an anion gap of 10, calcium 8.7, magnesium 2.3. White count 12.17 , hemoglobin 7.5, hematocrit 25.4 with a platelet count of 277. PHYSICAL EXAMINATION: General: This is a 53-year-old, white female, resting quietly in bed. She appears chronically ill. No acute distress. Skin: Warm and dry. HEENT: Normocephalic, atraumatic. Conjunctiva is pale. She has CHELI. Mucous membranes are dry. Neck: Supple. Trachea midline. No JVD. Cardiovascular: She is irregularly irregular rate and rhythm. Unable to determine murmur or gallop. She is tachycardic. Lungs: Clear to auscultation bilaterally. Equal excursion on room air. Abdomen: Soft, distended, nontender. Positive bowel sounds. Genitourinary: Not inspected. Patient has been voiding. Extremities: Have trace edema. No clubbing or cyanosis. Integumentary: Skin is warm and dry without rashes or lesions anterior torso. ASSESSMENT AND PLAN: 1. Acute on chronic renal disease. The patient continues with atrial fibrillation with RVR. Her creatinine remains fairly stable at 1.9 to 2.1. Adequate urine output has been documented up to this point. No indications for dialysis intervention. 2. Electrolytes and acid-base balance. The patient has hyperkalemia. She is currently on Centrum Silver. We will stop this and put her on a B complex. 3. Acid-base balance. This is fairly acceptable. 4. Anemia. This remains low but stable. We will defer to the primary care team. 5. Pneumonia. Patient remains on renal dosed antibiotics. I would like to thank you for allowing us to follow with this patient. Dictated by REJI Arellano for John Mcghee MD Face to face encounter, data reviewed, discussed with Layla Patel on 12/02/18. I agree with the above assessment and plan of care. cc: REJI Arellano MD [facility]
--- NOTE | 2018-12-02 14:49 | PROGRESS NOTE ---
DATE: 12/02/2018 SUBJECTIVE: Patient resting in bed not in any obvious distress. OBJECTIVE: Vital signs: Temperature 98 degrees, pulse 150, respiratory rate 16, blood pressure 160/100, and oxygen saturation is 99%. HEENT: Atraumatic and normocephalic. Cardiovascular: S1 and S2 irregular. Respiratory: Good air entry bilaterally. Abdomen: Soft, nontender. No masses felt. Extremities: 1+ edema in the lower extremities. Central nervous system: No obvious focal deficits noted. LABORATORY: WBC is 12.17, hematocrit is 24.5, with a platelet count of 277,000. Sodium is 140, potassium is 5.6, chloride is 107. Bicarb 23. BUN is 49 and creatinine is 2.1. ASSESSMENT AND PLAN: 1. Pneumonia. Continue antibiotics. 2. Hyperkalemia. Correct raised potassium level. 3. Atrial fibrillation. Continue rate controlling agent as well as Eliquis. Cardiology following. 4. Acute on chronic renal failure. Follow up on renal function. Avoid nephrotoxic agents. Nephrology is following. 5. Diabetes mellitus. Continue blood sugar monitoring as well as sliding scale insulin. 6. Iron deficiency anemia. Continue Icar C Plus. GI plan for any GI work up as outpatient. 7. Deep vein thrombosis prophylaxis. The patient is on Eliquis. cc: You Meehan MD
[2018-12-02] MEDS ORDERED: INSULIN PEN NEEDLES ONE (15:16)
--- NOTE | 2018-12-02 19:02 | Extremity Venous Study ---
PROCEDURE NAME: Venous U/S Right Leg - 11/28/2018 SR. MANAGER CORPORATE COMMUNICATIONS: Harris. REQUESTING PHYSICIAN: Tierra Osborne MD INDICATIONS: Edema and pain in the right leg and knee. FINDINGS: The deep superficial veins of the right lower extremity were visualized along their course. All vessels appear compressible with forward flow with no evidence intraluminal thrombus. There was reflux noted in the right greater saphenous veins, superficial femoral, and left common femoral vein with Valsalva. cc: MD Tierra Mensah MD
[2018-12-02] MEDS: LIPITOR PO SCH (20:52)
[2018-12-02] MEDS: BASAGLAR SUBQ SCH (23:35)
[2018-12-03] MEDS: ZOSYN 2.25 GM in NS 50 ML IV SCH ×2 (04:25→13:23)
[2018-12-03] MEDS: XOPENEX NEB INH SCH ×3 (05:38→11:11)
[2018-12-03] MEDS: HUMALOG SUBQ SCH ×4 (06:25→12:06)
--- NOTE | 2018-12-03 06:41 | Diag Imaging Result Doc PS360 ---
EXAM: CHEST-1 VIEW HISTORY: pneumonia TECHNIQUE: Portable chest single view COMPARISON: 11/27/2018 FINDINGS: Poor inspiratory effort. No cardiomegaly. Mild central vascular prominence. There are infiltrates in the lower left lung. No pleural effusions identified. IMPRESSION: Mild interval worsening. Electronically signed by Ld Freitas 12/03/2018 6:39 AM
[2018-12-03 07:09] LABS: BASO# 0.03 X1000 (0.0-0.2); BASO% 0.2 % (0.0-0.8); EOS# 0.33 X1000 (0.0-0.7); EOS% 2.6 % (0.0-10.0); HEMATOCRIT 27.2 % (37.0-47.0); HEMOGLOBIN 7.9 g/dL (12.0-16.0); IMM GRAN# 0.12 X1000 (0.0-0.04); IMM GRAN% 0.9 % (0.0-0.5); LYMPH# 2.17 X1000 (1.2-3.4); LYMPH% 16.9 % (20.5-51.1); MCV 79.3 FL (81-99); MONO# 0.74 X1000 (0.11-0.59); MONO% 5.8 % (1.7-9.3); MPV 9.6 FL (7.4-10.4); NEUT# 9.42 X1000 (1.4-6.5); NEUT% 73.6 % (42.2-75.2); PLT 288 X1000 (130-400); RBC 3.43 XMIL (4.2-5.4); RDW 15.8 % (11.5-14.5); WBC 12.81 X1000 (4.8-10.8)
[2018-12-03] MEDS: NS NEB INH SCH ×2 (07:21→11:11)
[2018-12-03 07:27] LABS: ALBUMIN 3.5 g/dL (3.5-5.0); CREATININE 1.7 mg/dL (0.5-0.9); PHOSPHORUS 4.3 mg/dL (2.7-4.5); POTASSIUM 5.1 mmol/L (3.5-5.1)
[2018-12-03] MEDS: PERICOLACE PO SCH (08:30)
[2018-12-03] MEDS: SODIUM CHLORIDE 0.9% INJ SCH (08:31)
[2018-12-03] MEDS: ELIQUIS PO SCH (08:31)
[2018-12-03] MEDS: MULTAQ PO SCH (08:31)
[2018-12-03] MEDS: TRANDATE PO SCH (08:31)
[2018-12-03] MEDS: PROTONIX IV SCH (08:31)
[2018-12-03] MEDS: TESSALON PO SCH ×2 (08:31→13:26)
[2018-12-03] MEDS: WELLBUTRIN XL PO SCH (08:31)
[2018-12-03] MEDS: ICAR-C PO SCH (08:31)
[2018-12-03] MEDS: ZYVOX 600 MG/D5W 600 MG/300 ML IVPB IV SCH (10:50)
[2018-12-03] MEDS ORDERED: KAYEXALATE PO ONE (12:05)
[2018-12-03 12:56] VITALS: BP 163/97
--- NOTE | 2018-12-03 14:11 | PROGRESS NOTE ---
DATE: 12/03/2018 SUBJECTIVE: Patient has been moved from [facility] to [address] [place] [address]. Patient currently denies complaints. She is hoping to go home. She was sitting up in a chair in no acute distress. OBJECTIVE: Vital Signs: Temperature 98.1 degrees, pulse 130, respirations 18, blood pressure 163/97. LABORATORY: Hematology 12.8, hemoglobin 7.9, hematocrit 27.2, MCV 79.3. Chemistry 141, potassium 5.0, chloride 106, CO2 25, BUN 42, creatinine 1.7, glucose 262. ASSESSMENT AND PLAN: 1. Pneumonia on antibiotics. 2. Atrial fibrillation on medications. Followed by Cardiology. Patient is on Eliquis. 3. Acute versus chronic renal failure. Nephrology is following. 4. Iron-deficiency anemia. Patient is on iron supplements. Recommend she follow up with us as outpatient for further GI workup for her anemia. Patient voices understanding. Further plans will be made as needed. I have discussed this case with Dr. Jerome. Dictated by REJI Roldan for Kenneth Jerome MD cc: REJI Cesar MD
--- NOTE | 2018-12-03 16:53 | NEPHROLOGY PROGRESS NOTE ---
DATE: 12/03/2018 SUBJECTIVE: She is sitting up in the bed with no new complaints. She still has tachycardia. OBJECTIVE: Vital Signs: Blood pressure 148/78, heart rate 130, respirations 16, afebrile. Generally: Obese white female, no distress. Skin: Warm and dry. Neck: The neck veins are not appreciated. Heart: Irregular and tachycardic. Lungs: Equal, clear. Abdomen: Soft, nontender. Bowel sounds present. Extremities: Have trace edema. No clubbing or cyanosis. IMPRESSION AND PLAN: Chronic kidney disease stage 3. Her renal function is at her historical baseline. Electrolytes and acid-base are in target. Nothing further to add at this time, so we will sign off, but if we can be of any assistance, please do not hesitate to call. cc: John Mcghee MD
--- NOTE | 2018-12-04 02:25 | DISCHARGE SUMMARY ---
ADMISSION DATE: 11/27/2018 DISCHARGE DATE: 12/03/2018 PRINCIPAL DIAGNOSIS: Community-acquired pneumonia. SECONDARY DIAGNOSES: 1. Atrial fibrillation, paroxysmal. 2. Diabetes mellitus. 3. Chronic kidney disease. 4. Macrocytic anemia. 5. Morbid obesity. 6. Hyperkalemia. DISCHARGE MEDICATIONS: Levaquin 250 mg p.o. daily for the next 7 days, benzonatate 100 mg p.o. 3 times a day, Icar C one p.o. twice a day, bupropion 150 mg p.o. in the morning, Effexor XR 150 mg p.o. daily, insulin lispro 25 units three times a day as directed, hydrochlorothiazide 25 mg p.o. daily, labetalol 200 mg p.o. twice a day, Victoza 1.8 mg subcutaneous daily, apixaban 5 mg p.o. twice a day, atorvastatin 20 mg p.o. daily, Lantus 100 units subcutaneous at bedtime, lisinopril 40 mg p.o. daily. CONSULTATIONS DONE DURING THIS HOSPITALIZATION: 1. Cardiology consult, Dr. Santana. 2. Gastroenterology consult, Dr. Churchill. 3. Nephrology consult, Dr. John Mcghee. 4. Dr. Juaquin Mckeon for Orthopedics. PROCEDURES DONE DURING THIS HOSPITAL STAY: Echocardiogram 11/28/2018. Venous Doppler lower extremities to rule out DVT, 11/28/2018. Renal ultrasound 11/29/2018. HOSPITAL COURSE: Ms. Cathi Paiz is a 53-year-old female who presented to the hospital because of lightheadedness, as well as cough. X-ray of the chest showed lingular pneumonia. The patient was also noted to be in atrial fibrillation with rapid ventricular rate. She was diagnosed as having community-acquired pneumonia, and started on antibiotics. The patient was also placed on Cardizem infusion for atrial fibrillation with rapid ventricular rate. Cardiology was consulted. The patient was transitioned from Cardizem infusion to oral labetalol. She was maintained on Eliquis for anticoagulation. GI workup was consulted for iron deficiency anemia. Also, Orthopedics with regards to pain involving the right knee. Other events during the course of the hospital stay was Nephrology evaluation for chronic kidney disease. The patient did well and remained stable, and will be discharged home today, which is 12/03/2018. PHYSICAL EXAMINATION: Vital Signs: During my evaluation today, her vital signs were as follows: Temperature 98 degrees, pulse 190, respirations 18, blood pressure 167/95, oxygen saturation 96%. HEENT: Atraumatic, normocephalic. Cardiovascular: S1, S2. Respiratory: Has evidence of good air entry bilaterally. Abdomen: Obese, nontender. No masses felt. Extremities: Has edema in the lower extremities. Central Nervous System: No obvious focal deficit noted. PLAN: Will be to discharge home today, and for her to follow up with Cardiology with regards to atrial fibrillation, GI for workup for iron deficiency anemia, and also Nephrology for her chronic kidney disease. The patient is expected to take her discharge medications as noted above. cc: You Meehan MD
== END 2018-12-03 14:44 | disposition home or self-care (01) | DRG 308 ==
LOC: ED 09:58 → EDIPHOLD 12:35 → SUATTDRO 12:35 → 3S 22:56 → 4N 12-01 15:06
PROVIDERS: ATTEND Internal Medicine
CPT/HCPCS: 71010; 71020; 71045; 71046; 73562; 76770; 80048; 80053; 80069; 81001; 82272; 82550; 82570; 82607; 82728; 82746; 82948; 83036; 83540; 83550; 83605; 83735; 84132; 84156; 84300; 84443; 84484; 84540; 85025; 85610; 85730; 86850; 86900; 86901; 87040; 87070; 87081; 87088; 87205; 87275; 87276; 87430; 87449; 87804; 87899; 89051; 93005; 93306; 93970; 93971; 94640; 94761; 94799; 96361; 96365; 96367; 96375; 96376; 97116; 97162; 97530; 99285; 99291; A9270; C9113; J1040; J1160; J1815; J2020; J2543; J3370; J7030; S0164; XXXXX

== ENCOUNTER 2019-01-02 08:38 | Inpatient (IN) ==
[2019-01-02 09:31] LABS: INR 1.23; PROTIME 16.4 Seconds (11.0-16.0)
[2019-01-02 09:32] LABS: PTT 38.4 Seconds (22.3-41.8)
--- NOTE | 2019-01-02 09:43 | Diag Imaging Result Doc PS360 ---
CHEST-1 VIEW - 01/02/2019 INDICATION: SOB COMPARISON: 12/03/2018 FINDINGS: There are ill-defined interstitial infiltrates diffusely and bilaterally. There is cardiomegaly and pulmonary vascular congestion. No pleural effusions. IMPRESSION: Cardiomegaly and pulmonary edema. Electronically signed by Virgil Boss 01/02/2019 9:40 AM
[2019-01-02 09:46] LABS: ALB/GLOB RATIO 1.5; ALBUMIN 3.8 g/dL (3.5-5.0); CALCIUM 9.1 mg/dL (8.8-10.2); CREATININE 1.3 mg/dL (0.5-0.9); POTASSIUM 5.6 mmol/L (3.5-5.1); TOTAL BILIRUBIN 0.37 mg/dL (0.20-1.00); TOTAL PROTEIN 6.4 g/dL (6.3-8.3)
[2019-01-02 10:12] LABS: BASO# 0.04 X1000 (0.0-0.2); BASO% 0.3 % (0.0-0.8); EOS# 0.15 X1000 (0.0-0.7); HEMATOCRIT 31.2 % (37.0-47.0); HEMOGLOBIN 9.3 g/dL (12.0-16.0); IMM GRAN# 0.04 X1000 (0.0-0.04); IMM GRAN% 0.3 % (0.0-0.5); LYMPH# 1.13 X1000 (1.2-3.4); LYMPH% 7.2 % (20.5-51.1); MCHC 29.8 g/dL (33-37); MCV 77.2 FL (81-99); MONO# 0.74 X1000 (0.11-0.59); MONO% 4.7 % (1.7-9.3); MPV 10.2 FL (7.4-10.4); NEUT# 13.55 X1000 (1.4-6.5); NEUT% 86.5 % (42.2-75.2); PLT 232 X1000 (130-400); RBC 4.04 XMIL (4.2-5.4); RDW 16.8 % (11.5-14.5); WBC 15.65 X1000 (4.8-10.8)
[2019-01-02] MEDS ORDERED: LASIX IV ONE (10:51)
[2019-01-02] MEDS ORDERED: CARDIZEM IV ONE (11:03)
[2019-01-02 11:09] LABS: BANDS 2 % (0-1); EOS 2 % (1-10); LYMPHS 8 % (21-51); MONO 2 % (1-9); SEGS 86 % (42-75)
--- NOTE | 2019-01-02 11:12 | PROVIDER DOCUMENTATION ---
This chart was entered by Jenniffer Swan Scribe, acting as scribe for Brennan Prescott MD. HPI-Respiratory General - General Chief Complaint: Shortness of Breath Stated Complaint: sob/afib rvr Time Seen by Provider: 01/02/19 08:52 Source: patient Allergies/Adverse Reactions: Patient Allergies Allergy/AdvReac Type Severity Reaction Status Date / Time cephalexin monohydrate * Allergy Intermediate RASH Verified 01/02/19 09:01 [From Keflex] Home Medications: Home Medication List Medication Instructions Recorded Confirmed Last Taken Type Bupropion HCl [Bupropion Xl] 150 mg PO QAM 02/25/13 01/02/19 11/27/18 History Venlafaxine E.r. [Effexor Xr] 150 mg PO QAM 02/25/13 01/02/19 11/09/15 07:30 History ATORVAstatin [Lipitor] 20 mg PO DAILY 11/27/18 01/02/19 11/27/18 History Apixaban [Eliquis] 5 mg PO BID 11/27/18 01/02/19 11/27/18 History Hydrochlorothiazide 25 mg PO DAILY 11/27/18 01/02/19 11/27/18 History Insulin Glargine,Hum.rec.anlog 60 unit SQ HS 11/27/18 01/02/19 11/26/18 History [Lantus Solostar] LISINOpril [Prinivil] 40 mg PO QAM 11/27/18 01/02/19 11/27/18 History Labetalol [Trandate] 200 mg PO BID 11/27/18 01/02/19 11/27/18 History Liraglutide [Victoza] 1.8 mg SQ DAILY 11/27/18 01/02/19 11/26/18 History Iron Carbonyl/Ascorbic Acid 1 each PO BID tablet 12/03/18 01/02/19 Unknown Rx [Icar-C] Amlodipine [Norvasc] 1 tab PO DAILY 01/02/19 01/02/19 Unknown History Diltiazem HCl [Cartia Xt] 1 cap PO BID 01/02/19 01/02/19 Unknown History Flecainide Acetate 1 tab PO BID 01/02/19 01/02/19 Unknown History Insulin Lispro [Humalog Kwikpen 25 unit SQ DIRECTED 01/02/19 01/02/19 Unknown History [id number]] - History of Present Illness-Resp Nature of Presenting Problem: 53yof with hx of HTN, CHF, diabetes, A-fib via EMS presents with sob and A-fib with rvr since yesterday. She reports she was hospitalized with pneumonia and discharged on 12/03/18. She reports she has been in A-fib since she was hospitalized. She reports her HR has been approximately 120 since her hospitalization. She reports she visited her forest examiner, Dr. Woodson on 12/21/18. She reports she discussed cardioversion with Dr. Woodson. She reports she has a colonoscopy scheduled and an additional cardiology appointment scheduled. She additionally reports she has had RLE swelling since she was discharged. She reports she has had a recent Doppler ultrasound done and has no hx of blood clots. She reports she has not been able to ambulate regularly for approximately two months. She denies fever, chills, nausea, vomiting, diarrhea. Quality of Pain: reports: fullness, other ("out of breath") Severity in ED: reports: moderate, severe Onset/Duration: reports: 24 hours ago (yesterday) Timing: reports: still present, constant Cough Quality/Degree: reports: no cough Current Respiratory Medication Therapy: Initiated see nurses note Modifying Factors: improves with: nothing Associated Symptoms: reports: shortness of breath, other. denies: cough Similar Symptoms Previously?: No Recently seen or treated by another doctor?: No Review of Systems - Adult - REVIEW OF SYSTEMS - ADULT Constitutional: denies: chills, fever Eyes: denies: discharge, dry eyes Ears, Nose, Mouth & Throat: denies: ear discharge, ear pain Cardiovascular: reports: irregular heart rate (A fib with rvr). denies: chest pain Respiratory: reports: shortness of breath. denies: cough Gastrointestinal: denies: abdominal pain, diarrhea, nausea, vomiting Genitourinary: denies: dysuria, hematuria Musculoskeletal: reports: other (RLE swelling). denies: back pain, muscle aches, muscle weakness Integumentary: reports: no symptoms reported Neurological: denies: dizziness/vertigo, headache/migraines Psychiatric: reports: no symptoms reported Endocrine: reports: no symptoms reported Hematologic/Lymphatic: reports: no symptoms reported Allergic/Immunologic: reports: no symptoms reported All Other Systems: Reviewed and Negative Past History - Adult - PAST MEDICAL HISTORY-ADULT Review of Records: reports: Old Records Reviewed, Nursing Assessment Review, Medications Reviewed Major Childhood Illnesses: reports: denies history Cardiovascular: reports: A-Fib, HTN Psychiatric: reports: depression Endocrine/Immune: reports: Diabetes - PRIOR SURGERIES/PROCEDURES Surgical/Procedure History: reports: cholecystectomy, hysterectomy, BTL, orthopedic (extremity) (bilateral wrist), back/neck (back x2) - IMMUNIZATION STATUS Childhood Immunizations: See Nurse Assessment Flu Vaccine: See Nurse Assessment - FAMILY HISTORY Family History: reviewed, not pertinent - SOCIAL HISTORY Smoking: non-smoker Substance Use: denies Living Situation: family Physical Exam-General - PHYSICAL EXAM-ADULT Exam Limited by: obesity Initial Vital Signs Reviewed: Yes - CONSTITUTIONAL General Appearance: alert, moderate distress, obese, other (pt is wearing oxygen via nasal cannula) - EYES Eyes: PERRL/EOMI, pink conjunctivae - NECK Neck: non-tender, supple - RESPIRATORY Respiratory: respiratory distress, decreased breath sounds, accessory muscle use , rales - CARDIOVASCULAR Cardiovascular: no murmur, other (A fib with rvr) - GASTROINTESTINAL (ABDOMEN) Abdominal Exam: non tender, soft, other (prominent abdomen) - MUSCULOSKELETAL Extremity: non-tender, pedal edema (bilateral lower extremities), other (chronic discoloration RLE) - SKIN Integumentary: normal color, warm/dry - NEUROLOGIC Neurologic: grossly normal, no motor/sensory deficits - PSYCHIATRIC Psych/Mental Status: normal mood/affect, normal thought content, normal thought process, oriented x 3 Progress - PLAN OF CARE/RESULTS Progress/Plan/Lab Results: Vital Signs - 8 hr 01/02/19 08:48 01/02/19 09:23 01/02/19 09:32 Temperature 98.7 F Pulse Rate 125 H 132 H 131 H Respiratory Rate 22 32 H 28 H Blood Pressure 151/100 162/94 163/95 O2 Sat by Pulse Oximetry 86 L 95 94 L 01/02/19 09:47 01/02/19 10:02 Temperature Pulse Rate 139 H 130 H Respiratory Rate 31 H 21 Blood Pressure 152/106 159/92 O2 Sat by Pulse Oximetry 95 96 Laboratory Results - last 24 hr 01/02/19 01/02/19 01/02/19 09:03 09:03 09:03 WBC 15.65 H RBC 4.04 L Hgb 9.3 L Hct 31.2 L MCV 77.2 L MCH 23.0 L MCHC 29.8 L RDW Std Deviation 16.8 H Plt Count 232 MPV 10.2 Immature Gran % (Auto) 0.3 Neut % (Auto) 86.5 H Lymph % (Auto) 7.2 L [place] % (Auto) 4.7 Eos % (Auto) 1.0 Baso % (Auto) 0.3 Immature Gran # (Auto) 0.04 Neut # (Auto) 13.55 H Lymph # (Auto) 1.13 L [place] # (Auto) 0.74 H Eos # (Auto) 0.15 Baso # (Auto) 0.04 PT 16.4 H INR 1.23 PTT (Actin FS) 38.4 Sodium 144 Potassium 5.6 H Chloride 107 Carbon Dioxide 23 L Anion Gap 14 BUN 48 H Creatinine 1.3 H Estimated GFR/1.73 m2 43 BUN/Creatinine Ratio 37 Glucose 240 H Calculated Osmolality 307 Calcium 9.1 Total Bilirubin 0.37 AST 16 ALT 18 Alkaline Phosphatase 121 H Creatine Kinase 49 Troponin T Total Protein 6.4 Albumin 3.8 Globulin 2.6 Albumin/Globulin Ratio 1.5 Plasma Lactate 01/02/19 01/02/19 09:03 09:03 WBC RBC Hgb Hct MCV MCH MCHC RDW Std Deviation Plt Count MPV Immature Gran % (Auto) Neut % (Auto) Lymph % (Auto) [place] % (Auto) Eos % (Auto) Baso % (Auto) Immature Gran # (Auto) Neut # (Auto) Lymph # (Auto) [place] # (Auto) Eos # (Auto) Baso # (Auto) PT INR PTT (Actin FS) Sodium Potassium Chloride Carbon Dioxide Anion Gap BUN Creatinine Estimated GFR/1.73 m2 BUN/Creatinine Ratio Glucose Calculated Osmolality Calcium Total Bilirubin AST ALT Alkaline Phosphatase Creatine Kinase Troponin T < 0.010 Total Protein Albumin Globulin Albumin/Globulin Ratio Plasma Lactate 1.1 Orders Category Date Time Status Cardiac Monitoring DIRECTED Care 01/02/19 08:53 Active IV Insertion ORDERED Care 01/02/19 08:53 Completed Notify MD of + Sepsis Screen NOW Care 01/02/19 08:53 Active Notify Physician As Ordered Care 01/02/19 08:53 Active CHEST-1 VIEW [RAD] Stat Exams 01/02/19 08:53 Completed BLOOD CULTURE [BLDCUL] Stat Lab 01/02/19 09:03 Received CBC WITH DIFF [HEME] Stat Lab 01/02/19 09:03 Results CK PROFILE [SP CHEM] Stat Lab 01/02/19 09:03 Completed COMPREHENSIVE METABOLIC PANEL [CHEM] Stat Lab 01/02/19 09:03 Completed LACTATE, PLASMA [CHEM] Lab 01/02/19 12:00 Uncollected LACTATE, PLASMA [CHEM] Lab 01/02/19 15:00 Uncollected LACTATE, PLASMA [CHEM] Q3H Lab 01/02/19 09:03 Completed PROTIME WITH INR [COAG] Stat Lab 01/02/19 09:03 Completed PTT [COAG] Stat Lab 01/02/19 09:03 Completed TROPONIN T Stat Lab 01/02/19 09:03 Completed UIBC W TOTAL IRON [CHEM] Stat Lab 01/02/19 11:02 Ordered URINALYSIS W/POSS RFLX CULT [URINALYSIS] Stat Lab 01/02/19 08:53 Uncollected Furosemide [Lasix] Med 01/02/19 10:51 Discontinued 40 mg IV NOW ONE Oxygen Device Stat Oth 01/02/19 08:53 Active Result Diagrams: 01/02/19 09:03 01/02/19 09:03 - EKG 1 Time of EKG reading by physician:: 08:44 EKG Read and Signed by:: Brennan Prescott EKG Interpretation (*Must complete 3 of following elements*): Abnormal Rate: 127 Rhythm: Atrial flutter with variable AV block QRS: other (with variable AV block) ST Wave: non-specific ST changes Comments: Septal infarct - XRAY 1 XRAY Study: Chest Impression: Abnormal (FINDINGS: There are ill-defined interstitial infiltrates diffusely and bilaterally. There is cardiomegaly and pulmonary vascular congestion. No pleural effusions. IMPRESSION: Cardiomegaly and pulmonary edema.) - CONSULTS/PCP/HOSPITALIST Notification #1 *Consult/PCP/Hospitalist*: Dr Bowens Time Discussed: 11:05 Consult Disposition: Admit Departure - Departure Date of Disposition Decision: 01/02/19 Time of Disposition Decision: 11:10 DIAGNOSIS: Atrial fibrillation with RVR CHF (congestive heart failure) Qualifiers: Heart failure type: systolic Disposition: ADMITTED INPATIENT 09 Certified Medical Emergency: Emergent Condition: Fair Referrals and Follow-Ups: Ivory Mcmullen CRNP [Primary Care Provider] - - Critical Care Note This patient required my direct & personal management of CC.: Yes Total Time (mins): 30 Critical Care Statement: This patient required my direct personal management to treat or rule out processes, the absence of which, could potentiallly result in sudden, clinically significant life or limb threatening deterioration. Attestation - Physician/ TYRELL Attestation Patient care was provided by Advanced Practice Provider:: No The physician spent face to face time with patient:: Yes Advanced Practice Provider documentation review:: Supervising physician onsite and consulted in the evaluation and care of this patient. The physician did have a face to face encounter with the patient. This chart was documented by the indicated scribe, (Jenniffer Swan, Chrissy) and accurately reflects the services I performed and decisions made by me, Brennan Prescott MD, as attested by the provider's signature.
[2019-01-02 11:13] LABS: URINE SOURCE CLEAN CATCH
[2019-01-02] MEDS ORDERED: ZOFRAN IV PRN (11:14)
[2019-01-02] MEDS ORDERED: TYLENOL PO PRN (11:14)
[2019-01-02] MEDS ORDERED: VELTASSA PO ONE (11:18)
[2019-01-02 11:19] LABS: BILIRUBIN URINE NEGATIVE (NEGATIVE); BLOOD URINE MODERATE (NEGATIVE); COLOR YELLOW; GLUCOSE URINE TRACE mg/dL (NEGATIVE); KETONE URINE NEGATIVE (NEGATIVE); LEUKOCYTES URINE NEGATIVE (NEGATIVE); NITRITE URINE NEGATIVE (NEGATIVE); PROTEIN URINE 600 mg/dL (NEGATIVE); SP GRAVITY URINE 1.013; TURBIDITY URINE CLEAR (CLEAR); UROBILINOGEN URINE NORMAL (NORMAL)
[2019-01-02 11:21] LABS: UR EPITHELIAL CELLS <10 /HPF (<10); URINE BACTERIA NEGATIVE /HPF; URINE WBC <10 /HPF (<10)
[2019-01-02 11:24] LABS: IRON SATURATION 5 %; TIBC 306 ug/dL; TOTAL IRON 16 ug/dL (49-151); UNBOUND IRON 290 ug/dL (112-346)
[2019-01-02] MEDS: CARDIZEM 125/NS 125 MG/125 ML IVPB IV SCH ×2 (11:57→21:37)
[2019-01-02 12:26] LABS: UR AMPHETAMINES QUAL NONE DETECTED (NONE DETECT); UR BARBITUATES QUAL NONE DETECTED (NONE DETECT); UR BENZODIAZEPIN QUAL NONE DETECTED (NONE DETECT); UR CANNABINOIDS QUAL NONE DETECTED (NONE DETECT); UR COCAINE QUAL NONE DETECTED (NONE DETECT); UR METHADONE QUAL NONE DETECTED (NONE DETECT); UR OPIATES QUAL NONE DETECTED (NONE DETECT); UR OXYCODONE QUAL NONE DETECTED (NONE DETECT); UR PCP QUAL NONE DETECTED (NONE DETECT)
[2019-01-02] MEDS: ELIQUIS PO SCH ×2 (12:32→21:37)
[2019-01-02] MEDS: TAMBOCOR PO SCH ×2 (12:33→21:37)
[2019-01-02] MEDS: NORVASC PO SCH (12:33)
[2019-01-02] MEDS: HYDROCHLOROTHIAZIDE PO SCH (12:33)
[2019-01-02] MEDS: PRINIVIL PO SCH (12:34)
[2019-01-02] MEDS: TRANDATE PO SCH ×2 (12:35→21:37)
[2019-01-02] MEDS: VICTOZA SUBQ SCH (12:35)
[2019-01-02] MEDS: LEVAQUIN 500 MG in NS 100 ML IV SCH (12:36)
[2019-01-02] MEDS ORDERED: INSULIN PEN NEEDLES ONE (12:37)
--- NOTE | 2019-01-02 13:18 | CARDIOLOGY CONSULTATION ---
DATE: 01/02/2019 CHIEF COMPLAINT: Shortness of breath, palpitations. HISTORY OF PRESENT ILLNESS: Ms. Paiz is a 53-year-old, white female with a history of diabetes and atrial fibrillation with two previous pulmonary venous isolation procedures performed in [place]. She presented with atrial fibrillation with rapid ventricular response with the initial office visit on December [address] Woodson. She was initiated on diltiazem as well as flecainide. She has maintained compliance with her Eliquis with no interruptions for greater than 1 month. She has had no bleeding and no falls. She reports continued palpitations, as well shortness of breath that has progressively worsened over that time. She denies any overt chest pain. PAST MEDICAL HISTORY: 1. Significant for atrial fibrillation with previous cardioversions. 2. Iron deficiency anemia. 3. Atrial flutter with previous cardioversion and ablation in 2015. 4. Pneumonia. 5. Hypertension. 6. Hyperlipidemia. 7. Diabetes. 8. Chronic kidney disease. 9. Obesity. 10. Minimal coronary disease as identified by cardiac catheterization in 2014 which demonstrated a normal left main. The left anterior descending appeared normal. 11. Circumflex had minimal luminal irregularities in the mid vessel. The right coronary artery had mild luminal irregularities proximally with irregularities up to around 30% in the distal vessel. SOCIAL HISTORY: The patient does not smoke. No illicit drugs. FAMILY HISTORY: Father had a myocardial infarction in his 80's. REVIEW OF SYSTEMS: A 10-system review of systems is negative except for those things mentioned in history of present illness. PHYSICAL EXAMINATION: Vitals: She is afebrile. Her heart rate is in the 130s. Her blood pressure is 174/83. Generally: She is in acute distress. HEENT: Oropharynx is moist. Normal dentition. Eye examination shows pink conjunctivae. White sclerae. Neck: Examination shows no obvious thyromegaly or thyroid tenderness. Cardiovascular: She sounds to be in an irregularly irregular tachycardic rhythm. She has no obvious murmurs. She has no S3. She has no lower extremity edema. Chest: Sounds clear bilaterally. She has no increased work of breathing. Abdomen: Soft, nontender, nondistended. She has no obvious organomegaly. Skin: Warm and dry throughout without any rashes. Neurological: He is moving all extremities well. She has no lateralizing deficits. Psychiatric: Alert and oriented, pleasant. Normal mood and affect. PERTINENT DATA: Her EKG on 01/02 at 8:44 showed what appeared to be rapid atrial fibrillation, rate of 127 beats per minute. Her chest x-ray did suggest pulmonary edema. Her laboratory data shows a white count of 15.6. Her hematocrit is 31, MCV 77, platelet count 232,000. She does have a slight left shift, too. INR is 1.2, sodium 144, potassium 5.6, BUN 48, creatinine is 1.3. Her proBNP is 2744. TSH 0.72 with a free T4 of 1.2. ASSESSMENT: Ms. Paiz is a 53-year-old female with a history of atrial fibrillation who presented in rapid atrial fibrillation. PLAN: Tentative plan is for cardioversion in the morning. She continues to be in a rapid rate. She is on flecainide and apixaban and reports compliance with the anticoagulant for greater than 1 month with no interruptions. cc: Bj Irwin MD
--- NOTE | 2019-01-02 13:59 | HISTORY AND PHYSICAL ---
PRIMARY CARE PROVIDER: Nurse practitioner, Ivory Mcmullen CARDIAC CATHETERIZATION TECHNOLOGIST: Dr. Woodson CHIEF COMPLAINT: Palpitations, weakness, and shortness of breath. HISTORY OF PRESENT ILLNESS: Ms. Cathi Paiz is a 53-year-old morbidly obese female with a medical history of CKD stage 3, paroxysmal atrial fibrillation, diabetes mellitus type 2, hypertension, depression, who now presents with complaints of worsening shortness of breath and weakness along with palpitations on and off since her last discharge from here which was 12/03/2018. She was admitted at that time for community acquired pneumonia, discharged on Levaquin 250 mg for 7 days. She also had atrial fibrillation with RVR on that admit as well. Her chest x-ray on this admit shows significant pulmonary edema, although she has leukocytosis, and it really seems like she probably still has a pneumonia with a white count at 15,000. She is afebrile. She has a nonproductive cough. She does state that she also has burning with urination, but urinalysis really does not show any signs of infection. We will do Levaquin IV for now. Apparently on her last admit, she was anemic, and so she has not had cardioversion. She has been seen this admit already by Dr. Irwin who plans on cardioverting her in the morning. He wants us to treat her iron, and we will do that. She is admitted to [facility] given that she has uncontrolled atrial fibrillation with a rate in the 130s. We will resume her beta yas from this morning, and she has been started on IV drip Cardizem. Blood pressure is stable. PAST MEDICAL HISTORY: 1. Iron deficiency anemia. 2. Chronic kidney disease, stage 3 or 4. 3. Paroxysmal atrial fibrillation with multiple ablations, on Eliquis, followed by Dr. Woodson. 4. Diabetes mellitus type 2 on insulin. 5. Essential hypertension. 6. Morbid obesity with BMI of 42.8. 7. Depression. PAST SURGICAL HISTORY: 1. Cardiac ablations due to atrial fibrillation, none successful. 2. Bilateral wrist surgery. 3. Two back surgeries. 4. Tubal ligation. 5. Hysterectomy. 6. Cholecystectomy. SOCIAL HISTORY: Denies tobacco, alcohol or illicit drug use. . is at the bedside. She is on disability, and she walks with a cane. FAMILY HISTORY: Father from [place] in his 80s. Mother from metastatic pancreatic cancer. She has brothers and sisters who all have diabetes. ALLERGIES: Keflex causes a rash. HOME MEDICATIONS: 1. Wellbutrin 150 mg p.o. daily. 2. Diltiazem 120 mg p.o. twice daily. 3. Effexor 150 mg p.o. daily. 4. Eliquis 5 mg p.o. twice daily. 5. Flecainide acetate 50 mg p.o. twice daily. 6. Insulin Lispro 25 units subcutaneously as a sliding scale. 7. Hydrochlorothiazide 25 mg p.o. daily. 8. Lantus 60 units subcutaneously nightly. 9. Lipitor 20 mg p.o. daily. 10.Norvasc 5 mg p.o. daily. 11.Lisinopril 40 mg p.o. daily. 12.Labetalol 200 mg p.o. twice daily. 13.Victoza 1.8 mg subcutaneously daily. 14.Icar C 1 tab p.o. twice daily. REVIEW OF SYSTEMS: A 14-point review of systems are complete, and all were negative except for those mentioned in the above HPI. PHYSICAL EXAMINATION: VITAL SIGNS: Temperature is 98.7, heart rate 129, respiratory rate 18, blood pressure 174/83, O2 saturation is 98% on 3.5 L. Height 5 feet 7 inches tall, weight 273 pounds, with a BMI of 4.28. GENERAL: Ms. Cathi Paiz is a 53-year-old female. She is in no acute distress. She is able to answer questions appropriately. HEENT: Atraumatic and normocephalic. Pupils are equal, round and reactive to light. Extraocular movements were intact. Mucous membranes are moist. NECK: Trachea midline. CARDIOVASCULAR: Irregularly irregular tachycardic rate and rhythm. No rubs, gallops or murmurs. She has plus 2 to plus 1 lower extremity edema. Plus 2 dorsalis pedal pulses, plus 2 radial pulses. Negative for carotid bruits. Difficult to assess for JVD given body habitus. PULMONARY: Fine crackles throughout. Decreased in the bases anteriorly. Tolerating 3.5 L nasal cannula. No accessory muscle use or work of breathing noted. GASTROINTESTINAL: Soft, round, nondistended and nontender. Positive bowel sounds x4. EXTREMITIES: Decreased range of motion due to body habitus. There is 4/5 strength in all extremities. NEUROLOGICAL: Alert and oriented x3. Follows commands. Sensory is intact. SKIN: Warm, dry and intact. DIAGNOSTIC DATA: White blood cells 15,000, hemoglobin is 9, hematocrit 31, platelet count 232. INR is 1.23. PTT is 38.4. Sodium is 144, potassium 5.6, BUN is 48, creatinine 1.3, glucose 240, calcium 9.1, magnesium 1.8. Iron 16, total iron binding capacity is 306, percent saturation 5, unsaturated iron binding is 290. Bilirubin is 0.37, AST is 16, ALT is 18. CK is 49. Troponin is less than 0.01. ProBNP is 2744. Albumin is 3.8. Serum lactate 1.1. TSH is 0.72. Free T4 is 1.21. Urinalysis with 600 protein, moderate blood, 10 to 20 red blood cells. Urine drug screen negative. IMAGING: Chest x-ray with cardiomegaly and pulmonary edema. ASSESSMENT AND PLAN: 1. Atrial fibrillation with rapid ventricular response, rate in the 130s. We will resume her oral labetalol, start her on IV Cardizem drip along with an IV push. Blood pressure is stable. Cardiology consulted. Plan is n.p.o. after midnight and cardioversion in the morning. Continue Eliquis. 2. No medical history of congestive heart failure, although history of lower ejection fraction of 45% to 50% back in 2016 on a MOMO when she was in atrial fibrillation with RVR. Currently she has an elevated ProBNP of 2744, so likely with heart failure due to elevated heart rate with atrial fibrillation. She has pulmonary edema with this on her x-ray and has received a dose of 40 of IV Lasix. We will repeat a chest x-ray in the morning. 3. Iron deficiency anemia. Iron level is 16. As per request by Cardiology, we will give IV iron. 4. Chronic kidney disease stage 3. Currently is stable. Actually her creatinine is 1.3, which is better than the 1.7 to 2.1 that she was having while she was here her last admit. BUN is 48, which is her baseline. We will monitor that daily, as she did receive some IV Lasix. We will try to hold off with nephrotoxic medications. 5. In 11/2018, she had community acquired pneumonia. She currently has an elevated white blood cell count with a normal lactate, but she is tachycardic due to the atrial fibrillation. Requiring some oxygen, but that could be from pulmonary edema, and it could be that it is difficult to see any type of pneumonia on the chest x-ray due to the pulmonary edema. She has a nonproductive cough and started having chills this morning, so I have added Rocephin to her medication regimen. Again, we will look at the chest x-ray in the morning. 6. Diabetes mellitus type 2. We will do pattern glucoses and sliding scale insulin. 7. Hypertension. Continue home medications. 8. Depression. Continue home medications. 9. DVT prophylaxis. She is on Eliquis. 10. Hyperkalemia. Should improve after IV Lasix and one dose of Veltassa. Dictated by REJI Polanco for Robin Braajas MD cc: REJI Polanco MD [facility]
[2019-01-02] MEDS ORDERED: VENOFER 500 MG in NS 250 ML IV ONE (14:00)
[2019-01-02] MEDS: ATROVENT NEB INH SCH ×2 (15:06→22:43)
[2019-01-02] MEDS: XOPENEX NEB INH SCH ×2 (15:06→22:43)
--- NOTE | 2019-01-02 16:14 | HISTORY AND PHYSICAL ---
ADDENDUM: Patient is seen and examined by me [id number], all the laboratory images and vital signs were reviewed. This patient has a past medical history atrial fibrillation and came in with atrial fibrillation plus RVR, she has been placed on diltiazem drip, x-ray showed cardiomegaly and pulmonary edema but probably she has an infiltrate but not sure. Since this patient has an elevated WBC I will put her for now on levofloxacin. Cardiology Department evaluated this patient and likely this patient will be cardioverted tomorrow, NPO after midnight. In the other hand this patient's potassium was 5.6, she received a dose of Veltassa, BUN and creatinine around baseline, patient is completely alert and oriented x3, cardiovascular irregularly regular rate and rhythm, tachycardic. Chest decreased breath sounds globally with bilateral rales and some crackles, possible rhonchi at the left base. Iron level is low with elevated total iron binding capacity in a patient with a decreased MCV so probably this patient also has iron-deficiency anemia, I agree with the rest of the nurse practitioner's assessment and plan. cc: Robin Barajas MD
[2019-01-02] MEDS: HUMULIN R SUBQ SCH ×2 (16:42→21:40)
[2019-01-02] MEDS ORDERED: BASAGLAR SUBQ SCH (21:00)
[2019-01-02] MEDS ORDERED: LIPITOR PO SCH (21:00)
[2019-01-02] MEDS: ICAR-C PO SCH (21:39)
[2019-01-03] MEDS: ATROVENT NEB INH SCH ×2 (03:30→07:41)
[2019-01-03] MEDS: XOPENEX NEB INH SCH ×2 (03:31→07:41)
[2019-01-03 05:27] LABS: BASO# 0.03 X1000 (0.0-0.2); BASO% 0.2 % (0.0-0.8); EOS# 0.31 X1000 (0.0-0.7); EOS% 2.4 % (0.0-10.0); HEMATOCRIT 27.5 % (37.0-47.0); IMM GRAN# 0.04 X1000 (0.0-0.04); IMM GRAN% 0.3 % (0.0-0.5); LYMPH# 2.03 X1000 (1.2-3.4); LYMPH% 15.6 % (20.5-51.1); MCH 22.6 PG (27-31); MCHC 29.1 g/dL (33-37); MCV 77.7 FL (81-99); MONO# 0.85 X1000 (0.11-0.59); MONO% 6.5 % (1.7-9.3); MPV 9.9 FL (7.4-10.4); NEUT# 9.74 X1000 (1.4-6.5); PLT 228 X1000 (130-400); RBC 3.54 XMIL (4.2-5.4)
[2019-01-03 05:45] LABS: INR 1.48; PROTIME 19.1 Seconds (11.0-16.0); PTT 47.4 Seconds (22.3-41.8)
[2019-01-03 05:53] LABS: ALB/GLOB RATIO 1.1; ALBUMIN 3.5 g/dL (3.5-5.0); CREATININE 1.6 mg/dL (0.5-0.9); MAGNESIUM 1.8 mg/dL (1.5-2.7); POTASSIUM 4.4 mmol/L (3.5-5.1); TOTAL BILIRUBIN 0.36 mg/dL (0.20-1.00); TOTAL PROTEIN 6.8 g/dL (6.3-8.3)
[2019-01-03 06:09] LABS: FERRITIN 241 ng/mL (13-150)
[2019-01-03] MEDS: HUMULIN R SUBQ SCH ×2 (06:32→11:22)
[2019-01-03 06:41] LABS: IRON SATURATION 98 %; TIBC 226 ug/dL; TOTAL IRON 222 ug/dL (49-151); UNBOUND IRON 6 ug/dL (112-346)
--- NOTE | 2019-01-03 06:49 | EKG Report ---
Test Performed on : 01/03/2019 06:43:24 AM Test Reason : chest pain Blood Pressure : / mmHG Vent. Rate : 118 BPM Atrial Rate : 117 BPM P-R Int : 000 ms QRS Dur : 094 ms QT Int : 354 ms P-R-T Axes : 000 028 102 degrees QTc Int : 496 ms Atrial fibrillation. with rapid ventricular response. Nonspecific T wave abnormality Abnormal ECG When compared with ECG of 02-JAN-2019 08:44, (Unconfirmed) Atrial fibrillation. has replaced Atrial flutter. Unconfirmed Result
--- NOTE | 2019-01-03 06:58 | EKG Report ---
Test Performed on : 01/02/2019 08:44:05 AM Test Reason : afib w rvr Blood Pressure : / mmHG Vent. Rate : 127 BPM Atrial Rate : 277 BPM P-R Int : 000 ms QRS Dur : 090 ms QT Int : 340 ms P-R-T Axes : 000 036 100 degrees QTc Int : 494 ms Atrial flutter. with variable AV block. Septal infarct , age undetermined Abnormal ECG When compared with ECG of 27-NOV-2018 10:20, (Unconfirmed) Atrial flutter. has replaced Atrial fibrillation. Septal infarct is now present Unconfirmed Result
--- NOTE | 2019-01-03 07:37 | Diag Imaging Result Doc PS360 ---
CHEST-PORTABLE - 01/03/2019 INDICATION: pulm edema; ? pna COMPARISON: 01/02/2019 FINDINGS: There has been improvement in the interstitial markings/pulmonary edema. Heart size remains borderline enlarged. No pneumothorax or pleural effusion. IMPRESSION: Improvement in the interstitial markings/pulmonary edema. Electronically signed by Virgil Boss 01/03/2019 7:34 AM
--- NOTE | 2019-01-03 07:48 | PROGRESS NOTE ---
DATE: 01/03/2019 SUBJECTIVE: This patient feels better compared with yesterday. She is not complaining of chest pain or shortness of breath. Today, she will have a cardioversion. She is still in atrial fibrillation. Cardiology on board. We will monitor. OBJECTIVE: Vital Signs: Temperature 97.5 degrees, pulse 116, respiratory rate 17, blood pressure 136/80, oxygen saturation 96% on 2 L of nasal cannula. HEENT: Head normocephalic. No trauma. PERRLA. Neck: Supple. No JVD. No masses. Central trachea. Chest: Clear to auscultation. Some crepitus at the bases. Cardiovascular: Irregularly irregular rate and rhythm. No murmurs. No gallops. Tachycardia. Abdomen: Soft, obese, protuberant, nontender, nondistended. No hepatosplenomegaly. Extremities: Right lower extremity with trace to 1+ edema. No clubbing. No cyanosis. Neurological Examination: The patient is alert and oriented x3. No focal deficits. Laboratory: WBC 13, hemoglobin 8, hematocrit 27.5, platelets 228,000. Sodium 137, potassium 4.4, chloride 102, bicarbonate 23, BUN 50, creatinine 1.6, glucose 150, calcium 9. ASSESSMENT AND PLAN: 1. Atrial fibrillation with rapid ventricular response. This patient feels better today. Today, hopefully, she will have a cardioversion done by the cardiology department. Blood pressure is stable. We will monitor. 2. Iron deficiency anemia. Iron level is low and she is getting intravenous iron. I discussed this with the patient and she states that she has an appointment with hematology/oncology, Dr. Khan, in the near future. 3. Chronic kidney disease stage 3, stable. This is her baseline. 4. She has a history of community-acquired pneumonia last month. Currently, her white blood cells are still elevated with normal lactate. We will continue with the same management. 5. Type 2 diabetes. Continue pattern of blood sugar and sliding scale insulin. 6. Hypertension. Continue home medication. 7. Depression. Continue with the same treatment. 8. Deep vein thrombosis prophylaxis. She is on Eliquis. 9. Hyperkalemia, resolved. She received a dose of Veltassa yesterday and some Lasix. 10. Isolated right lower extremity edema. Today, it is 1+ pitting edema, only on the right side. As per the patient, that is the only leg that basically is swollen. She never had edema on the left side. I will order an abdominal ultrasound. cc: Robin Barajas MD
[2019-01-03] MEDS: NORVASC PO SCH (08:16)
[2019-01-03] MEDS: ELIQUIS PO SCH (08:16)
[2019-01-03] MEDS: PRINIVIL PO SCH (08:16)
[2019-01-03] MEDS: HYDROCHLOROTHIAZIDE PO SCH (08:17)
[2019-01-03] MEDS: ICAR-C PO SCH (08:17)
[2019-01-03] MEDS: TRANDATE PO SCH (08:17)
[2019-01-03] MEDS: TAMBOCOR PO SCH (08:18)
[2019-01-03] MEDS: VICTOZA SUBQ SCH (08:22)
[2019-01-03] MEDS ORDERED: EFFEXOR XR PO SCH (09:00)
[2019-01-03] MEDS ORDERED: WELLBUTRIN XL PO SCH (09:00)
[2019-01-03] MEDS ORDERED: CLAVE TWINSITE 32 IN 11959 ONE (10:08)
[2019-01-03] MEDS ORDERED: NS 1,000 ML ONE (10:08)
[2019-01-03] MEDS ORDERED: ANESTHESIA PB SET 88 IN 5742 ONE (10:08)
[2019-01-03] MEDS ORDERED: DIPRIVAN 1% ONE (10:38)
[2019-01-03] MEDS: LEVAQUIN 500 MG in NS 100 ML IV SCH (11:22)
--- NOTE | 2019-01-03 12:08 | EKG Report ---
Test Performed on : 01/03/2019 12:02:38 PM Test Reason : s/p Cardioversion Blood Pressure : / mmHG Vent. Rate : 078 BPM Atrial Rate : 078 BPM P-R Int : 194 ms QRS Dur : 094 ms QT Int : 430 ms P-R-T Axes : 073 036 074 degrees QTc Int : 490 ms Normal sinus rhythm. Prolonged QT Abnormal ECG When compared with ECG of 03-JAN-2019 06:43, (Unconfirmed) Sinus rhythm. has replaced Atrial fibrillation. Vent. rate has decreased BY 40 BPM T wave amplitude has increased in Inferior leads Nonspecific T wave abnormality no longer evident in Lateral leads Unconfirmed Result
[2019-01-03 12:09] VITALS: BP 126/60
--- NOTE | 2019-01-03 12:31 | CARDIAC CATH REPORT ---
DATE: 01/03/2019 PROCEDURE PERFORMED: Direct current cardioversion. INDICATION: The patient is with persistent atrial flutter. DESCRIPTION OF PROCEDURE: The patient was brought to the cardiac canvas shop laborer in the fasting state. She had been taking all of her usual medications including anticoagulant and antiarrhythmics. The patient had the pads positioned in anterior posterior location. She received a single synchronized countershock to the chest cage consisting of 120 leonard per second. She converted from atrial flutter into sinus rhythm. She woke up from the effects of anesthesia without deficit. SUMMARY: This was a successful cardioversion from atrial flutter into sinus rhythm. RECOMMENDATIONS: The patient will be kept on medical therapy including labetalol, flecainide, and we will probably put her on low dose Cardizem. The patient will follow up in my clinic in about 3 to 4 weeks. cc: Ricardo Woodson MD
--- NOTE | 2019-01-03 13:44 | CARDIOLOGY PROGRESS NOTE ---
DATE: 01/03/2019 SUBJECTIVE: She underwent her cardioversion today with successful conversion to sinus. She feels much better today. OBJECTIVE: Vital signs: She is afebrile, heart rate is 76, her blood pressure is 126/72. Telemetry currently shows sinus. General: No acute distress. Cardiovascular: She sounds to be in a regular rate and rhythm. She has no murmurs. She has no S3. She has no lower extremity edema. Chest: Exam is clear bilaterally. No increased work of breathing. Abdomen: Soft, nontender. PERTINENT DATA: White count is 13, hematocrit is 27, her platelet count is 228,000. Sodium is 137, potassium 4.4, BUN 50, creatinine is 1.6. ASSESSMENT: Ms. Paiz is a 53-year-old female who presented with atrial flutter. She is currently in sinus rhythm after cardioversion. PLAN: From my standpoint, she would be okay to go home from a Cardiology standpoint. She is on apixaban, diltiazem, and flecainide. I would recommend continuation of these medications. She can follow up with Dr. Woodson within the next month. cc: Bj Irwin MD
--- NOTE | 2019-01-03 14:24 | Diag Imaging Result Doc PS360 ---
US ABDOMEN-COMPLETE - 01/03/2019 INDICATION: Isolated right extremity edema, hx of ovary mass COMPARISON: Renal ultrasound 11/29/2018 FINDINGS: The gallbladder is absent. The liver is normal in echotexture. Common bile duct measures 5 mm. There is borderline splenomegaly. The spleen measures 13.1 x 13.3 x 3.9 cm. The pancreas and both kidneys are normal. There is a trace right pleural effusion. No ascites. Aorta, IVC, and main portal vein are patent. IMPRESSION: Splenomegaly. Trace right pleural effusion. Electronically signed by Virgil Boss 01/03/2019 2:22 PM
--- NOTE | 2019-01-03 21:12 | DISCHARGE SUMMARY ---
ADMISSION DATE: 01/02/2019 DISCHARGE DATE: 01/03/2019 DISCHARGE DIAGNOSES: 1. Atrial fibrillation/atrial flutter with rapid ventricular rate, status post successful cardioversion. 2. Iron deficiency anemia. 3. Chronic kidney disease stage 3. 4. History of community-acquired pneumonia last month. 5. Type 2 diabetes. 6. Hypertension. 7. Depression. 8. Hyperkalemia, resolved. 9. Lower extremity edema, especially the right lower extremity. HISTORY AND HOSPITAL COURSE: A 53-year-old, female with a past medical history of CKD stage 3, paroxysmal atrial fibrillation, morbid obesity, Type 2 diabetes, hypertension, depression, presented to the emergency department complaining of shortness of breath and weakness, along with palpitations on and off since her last discharge from here which was on 12/03/2018. She was then admitted on 01/02/2019. She also had atrial fibrillation with RVR on that admission as well. Her chest x-ray on this admission shows significant pulmonary edema, leukocytosis, but she is not having fever or productive cough. She was complaining a little bit of burning sensation, but urinalysis really does not show any signs of infection and blood culture has been negative, but she was placed anyway on antibiotics. She was evaluated by Cardiology Department and they planned to do a cardioversion which was done today and it was successful. She was admitted on the CIC unit. Cardiology Department basically managed all her medications. Today, this patient is in sinus rhythm. She has no complaint of chest pain or shortness of breath. She will be discharged home. She will complete the course of antibiotics. She will see Dr. Woodson next month on 01/26/2019. Also, she will follow up with Dr. Khan on 01/31/2019. At the moment of discharge, the patient was in a stable medical condition, tolerating p.o. and ambulating. She does have a little bit of right lower extremity edema that is bigger compared with the left side. I ordered an ultrasound that did not show any mass but showed splenomegaly and a little bit of pleural effusion. OBJECTIVE: Vital Signs: Temperature 98.2, pulse 76, respiratory rate 18, blood pressure 126/60, oxygen saturation 94% on room air. HEENT: Head normocephalic. No trauma. PERRLA. Neck: Supple. No JVD. No masses. Central trachea. Chest: Clear to auscultation. Some rales at the bases. Cardiovascular: RRR. No murmurs. Abdomen: Soft, nontender, nondistended. No hepatosplenomegaly. Extremities: Right lower extremity 1+ edema. No clubbing. No cyanosis. Neurological: The patient is alert and oriented x3. No focal deficits. LABORATORY: WBC 13, hemoglobin 8, hematocrit 27.5, platelets 228. Sodium 137, potassium 4.4, chloride 102, bicarbonate 23. BUN 50, creatinine 1.6, glucose 150. Calcium 9. DISCHARGE MEDICATIONS: Levofloxacin 500 mg p.o. daily for 4 days. Diltiazem CD 120 mg p.o. daily. Bupropion 150 mg p.o. daily. Effexor XR 150 mg p.o. every morning. Hydrochlorothiazide 25 mg p.o. daily. Labetalol 200 mg p.o. twice a day. Victoza 1.8 mg subcu daily. Apixaban/Eliquis 5 mg p.o. twice a day. Lipitor 20 mg p.o. daily. Insulin glargine 60 units subcutaneous at bedtime. Lisinopril 40 mg p.o. daily. Icar-C 1 tablet p.o. twice a day. Flecainide 1 tablet p.o. twice a day and insulin lispro 25 units subcu as directed per protocol. TIME SPENT: Time discharging this patient 35 minutes. cc: Robin Barajas MD
[2019-01-04] MEDS ORDERED: CARDIZEM CD PO SCH (09:00)
== END 2019-01-03 15:50 | disposition home or self-care (01) | DRG 308 ==
LOC: SUPCPDRO → ED 08:38 → 3S 11:26
PROVIDERS: ATTEND Internal Medicine
CPT/HCPCS: 71010; 71045; 76700; 80053; 80101; 80301; 80307; 80324; 80345; 80346; 80353; 80358; 80361; 80365; 81001; 82550; 82607; 82728; 82746; 82948; 83540; 83550; 83605; 83735; 83880; 83992; 84439; 84443; 84484; 85025; 85610; 85730; 87040; 87275; 87276; 87804; 92960; 93005; 93010; 94640; 94761; 94799; 96374; 96375; 99285; A9270; G0431; G0434; G0479; G0480; J1756; J1940; J1956; J7030; J7050; XXXXX

== ENCOUNTER 2019-05-01 16:14 | Inpatient (IN) ==
[2019-05-01 17:02] LABS: BASO# 0.03 X1000 (0.0-0.2); BASO% 0.3 % (0.0-0.8); EOS# 0.36 X1000 (0.0-0.7); EOS% 3.4 % (0.0-10.0); HEMATOCRIT 34.1 % (37.0-47.0); HEMOGLOBIN 10.7 g/dL (12.0-16.0); IMM GRAN# 0.02 X1000 (0.0-0.04); IMM GRAN% 0.2 % (0.0-0.5); LYMPH# 1.36 X1000 (1.2-3.4); LYMPH% 12.9 % (20.5-51.1); MCH 27.4 PG (27-31); MCHC 31.4 g/dL (33-37); MCV 87.4 FL (81-99); MONO# 0.68 X1000 (0.11-0.59); MONO% 6.4 % (1.7-9.3); MPV 10.7 FL (7.4-10.4); NEUT# 8.13 X1000 (1.4-6.5); NEUT% 76.8 % (42.2-75.2); PLT 183 X1000 (130-400); WBC 10.58 X1000 (4.8-10.8)
[2019-05-01 17:06] LABS: INR 1.3; PROTIME 17.2 Seconds (11.0-16.0)
[2019-05-01 17:07] LABS: PTT 33.5 Seconds (22.3-41.8)
--- NOTE | 2019-05-01 17:14 | Diag Imaging Result Doc PS360 ---
EXAM: CHEST-PORTABLE INDICATION: Dyspnea TECHNIQUE: One view COMPARISON: 04/25/2019 FINDINGS: There are groundglass infiltrates with a basilar predominance and prominent central vasculature suggesting pulmonary venous congestion and at least mild edema. There is no discrete pleural fluid collection or pneumothorax. The cardiac silhouette is borderline prominent. IMPRESSION: Suggestion of pulmonary venous congestion and likely mild interstitial edema. Electronically signed by Juaquin Yang 05/01/2019 5:12 PM
[2019-05-01 17:24] LABS: ALB/GLOB RATIO 1.7; ALBUMIN 3.8 g/dL (3.5-5.0); CALCIUM 8.8 mg/dL (8.8-10.2); CREATININE 1.4 mg/dL (0.5-0.9); POTASSIUM 4.9 mmol/L (3.5-5.1); TOTAL BILIRUBIN 0.38 mg/dL (0.20-1.00); TOTAL PROTEIN 6.1 g/dL (6.3-8.3)
[2019-05-01] MEDS ORDERED: LASIX IV ONE (17:42)
--- NOTE | 2019-05-01 17:56 | PROVIDER DOCUMENTATION ---
This chart was entered by Monika Ward Scribe, acting as scribe for Andreas Reyez MD. HPI-Respiratory General - General Chief Complaint: Shortness of Breath Stated Complaint: SOB Time Seen by Provider: 05/01/19 16:30 Source: patient Allergies/Adverse Reactions: Patient Allergies Allergy/AdvReac Type Severity Reaction Status Date / Time cephalexin monohydrate * Allergy Intermediate RASH Verified 01/02/19 09:01 [From Keflex] Home Medications: Home Medication List Medication Instructions Recorded Confirmed Last Taken Type Bupropion HCl [Bupropion Xl] 150 mg PO QAM 02/25/13 05/01/19 04/21/19 08:00 History Venlafaxine E.r. [Effexor Xr] 150 mg PO QAM 02/25/13 04/22/19 04/21/19 08:00 History ATORVAstatin [Lipitor] 20 mg PO DAILY 11/27/18 05/01/19 04/21/19 21:00 History Apixaban [Eliquis] 5 mg PO BID 11/27/18 05/01/19 04/21/19 21:00 History Hydrochlorothiazide 25 mg PO DAILY 11/27/18 05/01/19 04/21/19 08:00 History Insulin Glargine,Hum.rec.anlog 60 unit SQ HS 11/27/18 05/01/19 04/21/19 21:00 History [Lantus Solostar] LISINOpril [Prinivil] 40 mg PO QAM 11/27/18 04/22/19 04/21/19 08:00 History Labetalol [Trandate] 200 mg PO BID 11/27/18 04/22/19 04/21/19 21:00 History Liraglutide [Victoza] 1.8 mg SQ DAILY 11/27/18 04/22/19 04/21/19 08:00 History Flecainide Acetate 1 tab PO BID 01/02/19 05/01/19 04/21/19 21:00 History Insulin Lispro [Humalog Kwikpen 25 unit SQ DIRECTED 01/02/19 04/22/19 Unknown History [id number]] Diltiazem C.d. [Cardizem Cd] 120 mg PO DAILY #90 cap 01/03/19 05/01/1919 08:00 Rx Prucalopride Succinate [Motegrity] 2 mg PO DAILY 04/22/19 04/22/19 04/21/19 08:00 History Omeprazole 40 mg PO DAILY 05/01/19 05/01/19 Unknown History - History of Present Illness-Resp Nature of Presenting Problem: 54 y/o female presents to ED with SOB and dry cough onset this morning. Pt reports she was discharged from the hospital on Thursday after being admitted for CHF/afib. Pt states she could not sleep last night. Pt is alert and oriented. Quality of Pain: reports: none Severity in ED: reports: mild Onset/Duration: reports: this morning Timing: reports: still present Context: reports: other (hx CHF) Exposure: reports: other (hx CHF) Cough Quality/Degree: reports: dry cough Episode Frequency: frequent episodes (hx CHF) Current Respiratory Medication Therapy: Initiated see nurses note Modifying Factors: improves with: nothing Associated Symptoms: reports: cough (dry), shortness of breath, short of breath Similar Symptoms Previously?: Yes Recently seen or treated by another doctor?: Yes Review of Systems - Adult - REVIEW OF SYSTEMS - ADULT Constitutional: denies: chills, fever Eyes: reports: no symptoms reported Ears, Nose, Mouth & Throat: reports: no symptoms reported Cardiovascular: denies: chest pain, palpitations Respiratory: reports: cough (dry), shortness of breath Gastrointestinal: denies: abdominal pain, diarrhea, nausea, vomiting Genitourinary: reports: no symptoms reported Musculoskeletal: denies: back pain, joint pain Integumentary: reports: no symptoms reported Neurological: denies: dizziness/vertigo, seizure Psychiatric: reports: no symptoms reported Endocrine: reports: no symptoms reported Hematologic/Lymphatic: reports: no symptoms reported Allergic/Immunologic: reports: no symptoms reported All Other Systems: Reviewed and Negative Past History - Adult - PAST MEDICAL HISTORY-ADULT Review of Records: reports: Old Records Reviewed, Nursing Assessment Review, Medications Reviewed Major Childhood Illnesses: reports: denies history Cardiovascular: reports: A-Fib, CHF, HTN Genitourinary: reports: kidney disease Psychiatric: reports: depression Endocrine/Immune: reports: Diabetes Other Conditions: reports: MRSA - PRIOR SURGERIES/PROCEDURES Surgical/Procedure History: reports: cholecystectomy, hysterectomy, BTL, orthopedic (extremity) (bilateral wrist), back/neck (back x2), other (cardiac ablation) - IMMUNIZATION STATUS Childhood Immunizations: See Nurse Assessment Flu Vaccine: See Nurse Assessment - FAMILY HISTORY Family History: reviewed, not pertinent - SOCIAL HISTORY Smoking: non-smoker Substance Use: none/never Alcohol Use Frequency: never Living Situation: family Physical Exam-General - PHYSICAL EXAM-ADULT Initial Vital Signs Reviewed: Yes - CONSTITUTIONAL General Appearance: appears well, alert, mild distress - EYES Eyes: PERRL/EOMI, pink conjunctivae - HEAD, EARS, NOSE, MOUTH & THROAT HENMT: normocephalic/atraumatic, moist mucous membranes, normal ENT inspection - NECK Neck: non-tender, full range of motion - RESPIRATORY Respiratory: chest non-tender, lungs clear, increased rate - CARDIOVASCULAR Cardiovascular: normal peripheral pulses, regular rate, rhythm - GASTROINTESTINAL (ABDOMEN) Abdominal Exam: normal bowel sounds, non tender, soft - MUSCULOSKELETAL Back Exam: normal inspection, no CVA tenderness, no vertebral tenderness Extremity: normal range of motion, non-tender, normal gait - SKIN Integumentary: normal color, warm/dry - NEUROLOGIC Neurologic: grossly normal - PSYCHIATRIC Psych/Mental Status: normal mood/affect, normal thought content, normal thought process, oriented x 3 - HEART Score HEART Score: History: Slightly Suspicious HEART Score: ECG: Non-Specific Repolarization Disturbance/LBBB/PM HEART Score: Age: 45-65 Years HEART Score: Risk Factors for Atherosclerotic Disease: > or = 3 Risk Factors or History of Atherosclerotic Disease Progress - PLAN OF CARE/RESULTS Progress/Plan/Lab Results: Vital Signs - 8 hr 05/01/19 16:17 Temperature 97.4 F L Pulse Rate 72 Respiratory Rate 22 Blood Pressure 161/74 O2 Sat by Pulse Oximetry 89 L Laboratory Results - last 24 hr 05/01/19 05/01/19 05/01/19 16:40 16:40 16:40 WBC 10.58 RBC 3.90 L Hgb 10.7 L Hct 34.1 L MCV 87.4 MCH 27.4 MCHC 31.4 L RDW Std Deviation 16.0 H Plt Count 183 MPV 10.7 H Immature Gran % (Auto) 0.2 Neut % (Auto) 76.8 H Lymph % (Auto) 12.9 L [place] % (Auto) 6.4 Eos % (Auto) 3.4 Baso % (Auto) 0.3 Immature Gran # (Auto) 0.02 Neut # (Auto) 8.13 H Lymph # (Auto) 1.36 [place] # (Auto) 0.68 H Eos # (Auto) 0.36 Baso # (Auto) 0.03 PT INR PTT (Actin FS) Sodium 140 Potassium 4.9 Chloride 101 Carbon Dioxide 25 Anion Gap 14 BUN 37 H Creatinine 1.4 H Estimated GFR/1.73 m2 39 BUN/Creatinine Ratio 26 Glucose 196 H Calculated Osmolality 294 Calcium 8.8 Total Bilirubin 0.38 AST 17 ALT 32 Alkaline Phosphatase 154 H Creatine Kinase 49 Troponin T [id number]-S-Qtqafhiqtmb Pept 4103 H Total Protein 6.1 L Albumin 3.8 Globulin 2.3 Albumin/Globulin Ratio 1.7 05/01/19 05/01/19 16:40 16:40 WBC RBC Hgb Hct MCV MCH MCHC RDW Std Deviation Plt Count MPV Immature Gran % (Auto) Neut % (Auto) Lymph % (Auto) [place] % (Auto) Eos % (Auto) Baso % (Auto) Immature Gran # (Auto) Neut # (Auto) Lymph # (Auto) [place] # (Auto) Eos # (Auto) Baso # (Auto) PT 17.2 H INR 1.30 PTT (Actin FS) 33.5 Sodium Potassium Chloride Carbon Dioxide Anion Gap BUN Creatinine Estimated GFR/1.73 m2 BUN/Creatinine Ratio Glucose Calculated Osmolality Calcium Total Bilirubin AST ALT Alkaline Phosphatase Creatine Kinase Troponin T < 0.010 Bgq-[id number]-Jkoeqtxbocg Pept Total Protein Albumin Globulin Albumin/Globulin Ratio Orders Category Date Time Status Admit - [facility] Routine AdmDCTranf 05/01/19 18:36 Active Activity - Up with Assistance ORDERED Care 05/01/19 18:36 Active Daily Weights 0500 Care 05/01/19 18:41 Active FSBS/Accucheck Result AC + HS Care 05/01/19 18:36 Active Intake and Output-Strict ORDERED Care 05/01/19 18:36 Active Nursing- MD Consult Request ROUTINE Care 05/01/19 18:39 Active Vital Signs Order Q 8-HR ASSESS Care 05/01/19 18:36 Active Z-Document. for Tele Applied ORDERED Care 05/01/19 18:38 Active Physician/Provider Consults Routine Cons 05/02/19 08:00 Ordered Heart Healthy Diet Diet 05/01/19 18:38 Active CHEST-PORTABLE [RAD] Stat Exams 05/01/19 16:34 Completed CBC WITH DIFF [HEME] Routine Lab 05/02/19 06:00 Uncollected CBC WITH ELECTRONIC DIFF [HEME] Stat Lab 05/01/19 16:40 Completed CK PROFILE [SP CHEM] Stat Lab 05/01/19 16:40 Completed COMPREHENSIVE METABOLIC PANEL [CHEM] Routine Lab 05/02/19 06:00 Uncollected COMPREHENSIVE METABOLIC PANEL [CHEM] Stat Lab 05/01/19 16:40 Completed PRO B-NATRIURETIC PEPTIDE Stat Lab 05/01/19 16:40 Completed PROTIME WITH INR [COAG] Stat Lab 05/01/19 16:40 Completed PTT [COAG] Stat Lab 05/01/19 16:40 Completed TROPONIN T Stat Lab 05/01/19 16:40 Completed Apixaban [Eliquis] Med 05/01/19 21:00 Ordered 5 mg PO BID Flecainide Acetate Med 05/01/19 21:00 Ordered 1 tab PO BID Furosemide [Lasix] Med 05/01/19 17:42 Discontinued 40 mg IV NOW ONE Omeprazole [Prilosec] Med 05/02/19 09:00 Ordered 40 mg PO DAILY Incentive Spirometer RTQ4H.SC Ot 05/01/19 19:30 Ordered Incentive Spirometer RTQ4H.SC Ot 05/01/19 23:30 Ordered Incentive Spirometer RTQ4H.SC Ot 05/02/19 07:30 Ordered Incentive Spirometer RTQ4H.SC Ot 05/02/19 11:30 Ordered Incentive Spirometer RTQ4H.SC Ot 05/02/19 15:30 Ordered Incentive Spirometer RTQ4H.SC Ot 05/02/19 19:30 Ordered Incentive Spirometer RTQ4H.SC Ot 05/02/19 23:30 Ordered Incentive Spirometer RTQ4H.SC Ot 05/03/19 07:30 Ordered Incentive Spirometer RTQ4H.SC Ot 05/03/19 11:30 Ordered Incentive Spirometer RTQ4H.SC Ot 05/03/19 15:30 Ordered Oxygen Device Routine Ot 05/01/19 18:36 Active Telemetry [OM.EQ] Routine Oth 05/01/19 18:36 Active Transfer/Admit Order [TRANSFER] Routine Transfer 05/01/19 18:41 Ordered Result Diagrams: 05/01/19 16:40 05/01/19 16:40 - EKG 1 Time of EKG reading by physician:: 16:26 EKG Read and Signed by:: Andreas Reyez EKG Interpretation (*Must complete 3 of following elements*): Abnormal Rate: 70 Rhythm: Sinus with 1st degree AV block [place]: normal QRS: other (low voltage QRS; septal infarct) ND Interval: normal ST Wave: normal - XRAY 1 XRAY Study: Chest Impression: See EMR Report ([facility] - [address] [facility], [address], [place] [address] [facility] - [address] [place] [address] Department of Imaging Patient: KATRIN SANTANA Date: 05/01/19#: [id number] : 1965ADM Status: PRE ERAcct#: [id number] Age/Sex: 54/FRoom/Bed: Loc: ED Ordering Physician: Andreas Reyez MD Family Physician: Ivory Mcmullen Reason for Procedure: dysp Signed EXAM: CHEST-PORTABLE INDICATION: Dyspnea TECHNIQUE: One view COMPARISON: 04/25/2019 FINDINGS: There are groundglass infiltrates with a basilar predominance and prominent central vasculature suggesting pulmonary venous congestion and at least mild edema. There is no discrete pleural fluid collection or pneumothorax. The cardiac silhouette is borderline prominent. IMPRESSION: Suggestion of pulmonary venous congestion and likely mild interstitial edema. Electronically signed by Juaquin Yang 05/01/2019 5:12 PM 05/01/191711 Interpreting Physician: Juaquin Yang MD Dictated Date/Time: 05/01/191709 cc: Andreas Reyez MD; Ivory Mcmullen) - CONSULTS/PCP/HOSPITALIST Notification #1 *Consult/PCP/Hospitalist*: REJI De La O for hospitalist Time Discussed: 17:55 Reason/Comments: CHF exacerbation Consult Disposition: Admit Departure - Departure Date of Disposition Decision: 05/01/19 Time of Disposition Decision: 17:55 DIAGNOSIS: CHF exacerbation Qualifiers: Heart failure type: unspecified Qualified Code(s): I50.9 - Heart failure, unspecified Disposition: ADMITTED INPATIENT 09 Certified Medical Emergency: Emergent Condition: Stable Referrals and Follow-Ups: Ivory Mcmullen CRNP [Primary Care Provider] - - Critical Care Note This patient required my direct & personal management of CC.: Yes Total Time (mins): 32 (]) Critical Care Statement: This patient required my direct personal management to treat or rule out processes, the absence of which, could potentiallly result in sudden, clinically significant life or limb threatening deterioration. Attestation - Physician/ TYRELL Attestation Patient care was provided by Advanced Practice Provider:: No The physician spent face to face time with patient:: Yes Advanced Practice Provider documentation review:: Supervising physician onsite and consulted in the evaluation and care of this patient. The physician did have a face to face encounter with the patient. This chart was documented by the indicated scribe, (Monika Ward, [employer]) and accurately reflects the services I performed and decisions made by me, Andreas Reyez MD, as attested by the provider's signature.
[2019-05-01] MEDS: TAMBOCOR PO SCH (21:10)
[2019-05-01] MEDS: ELIQUIS PO SCH (21:10)
--- NOTE | 2019-05-01 21:15 | HISTORY AND PHYSICAL ---
CHIEF COMPLAINT: Shortness of breath. HISTORY OF PRESENT ILLNESS: This is a 54-year-old female with a history of systolic and diastolic heart failure, iron-deficiency anemia, atrial fibrillation, hypertension. 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 She was discharged from the hospital on Thursday, 4 days prior, after having atrial fibrillation with RVR and undergoing a successful DC cardioversion on April 25. She denies any chest pain, any palpitations, any dizziness, or syncope. She does have lower extremity edema that she states is actually better than it has been in quite some time. She does not weigh herself daily. PAST MEDICAL HISTORY: 1. Atrial fibrillation, currently in sinus rhythm status post DC cardioversion 04/25/2019. 2. Systolic and diastolic heart failure with an ejection fraction of 40% on 04/22/2019. 3. Iron-deficiency anemia. 4. Morbid obesity. 5. Recent pneumonia. PAST SURGICAL HISTORY: 1. Cardiac ablations. 2. Bilateral wrist surgery. 3. Two back surgeries. 4. Tubal ligation. 5. Hysterectomy. 6. Cholecystectomy. 7. Camera capsule placed by Dr. Gray 04/19/2019. 8. EGD and colonoscopy in March of 2019. ALLERGIES: Keflex, which causes a rash. HOME MEDICATIONS: A list will be obtained by the nursing staff and once verified review and restart as appropriate. REVIEW OF SYSTEMS: Discussed with patient with pertinent positives stated in the HPI. She denied any syncope or dizziness, any chest pain, palpitations, any PND, orthopnea, any fevers, chills, any nausea, vomiting, diarrhea, constipation, black or bloody vomitus or stools, hematuria, dysuria, frequency, urgency. PHYSICAL EXAMINATION: GENERAL: This is a 54-year-old morbidly obese female who is lying on the stretcher in no distress. VITAL SIGNS: Blood pressure is 161/70 with a heart rate of 72, respirations are 20 to 22, temperature is 97.4 degrees and O2 saturation are 89 to 90 percent on room air. CARDIOVASCULAR: Regular rate and rhythm. S1 and S2 are appreciated. She has bilateral lower extremity edema with right greater than left. Calves are nontender bilateral with peripheral pulses palpable x4 extremities. PULMONARY: Breath sounds are diminished on the right, but clear. Chest rises and falls symmetric with respiration. Chest wall is nontender to palpation. GASTROINTESTINAL: Abdomen is large, soft, nontender, nondistended with bowel sounds in all 4 quadrants. : No CVA or suprapubic tenderness. NEUROLOGIC: She is alert oriented x3. SKIN: Is warm and dry. LABS: WBC is 10.5 with hemoglobin 10.7, hematocrit 34.1, and platelets 183,000. INR is 1.30. Sodium 140, potassium 4.9, BUN 37, creatinine 1.4 with a glucose of 196. Chest x-ray reveals suggestion of pulmonary versus congestion and likely mild interstitial edema. ASSESSMENT AND PLAN: 1. Systolic and diastolic congestive heart failure, acute on chronic. The patient will be placed on telemetry. We will continue with IV diuresis, daily weights, strict intake and output. We will consult Cardiology in the morning. 2. History of atrial fibrillation. The patient is in sinus rhythm at present. She will be placed on telemetry. We will identify her home medications and continue. 3. Iron-deficiency anemia. Aware. We will continue home medications. 4. Diabetes mellitus type 2. 5. Chronic kidney disease stage 3. Repeat a CBC, a CMP as well as a magnesium in the morning. We will trend her troponins and cardiac enzymes. 6. Plan discussed with Dr. Hanks. 7. Further treatments pending hospital course. Dictated by REJI Blackburn for He Caba MD cc: REJI Blackburn MD
[2019-05-02] MEDS: PRILOSEC PO SCH (06:21)
[2019-05-02] MEDS: HUMALOG SUBQ SCH ×4 (06:22→21:38)
[2019-05-02 07:36] LABS: BASO# 0.02 X1000 (0.0-0.2); BASO% 0.2 % (0.0-0.8); EOS# 0.47 X1000 (0.0-0.7); EOS% 3.9 % (0.0-10.0); HEMATOCRIT 37.6 % (37.0-47.0); HEMOGLOBIN 11.8 g/dL (12.0-16.0); IMM GRAN# 0.02 X1000 (0.0-0.04); IMM GRAN% 0.2 % (0.0-0.5); LYMPH# 1.48 X1000 (1.2-3.4); LYMPH% 12.2 % (20.5-51.1); MCH 27.4 PG (27-31); MCHC 31.4 g/dL (33-37); MCV 87.4 FL (81-99); MONO# 0.72 X1000 (0.11-0.59); MONO% 5.9 % (1.7-9.3); MPV 10.6 FL (7.4-10.4); NEUT# 9.43 X1000 (1.4-6.5); NEUT% 77.6 % (42.2-75.2); PLT 187 X1000 (130-400); RDW 16.1 % (11.5-14.5); WBC 12.14 X1000 (4.8-10.8)
[2019-05-02 07:54] LABS: ALB/GLOB RATIO 1.4; ALBUMIN 3.7 g/dL (3.5-5.0); CALCIUM 8.8 mg/dL (8.8-10.2); CREATININE 1.5 mg/dL (0.5-0.9); POTASSIUM 4.7 mmol/L (3.5-5.1); TOTAL BILIRUBIN 0.47 mg/dL (0.20-1.00); TOTAL PROTEIN 6.4 g/dL (6.3-8.3)
[2019-05-02] MEDS: TAMBOCOR PO SCH (09:46)
[2019-05-02] MEDS: ELIQUIS PO SCH ×2 (09:46→21:33)
--- NOTE | 2019-05-02 10:25 | EKG Report ---
Test Performed on : 05/01/2019 4:26:20 PM Test Reason : SOB Blood Pressure : / mmHG Vent. Rate : 070 BPM Atrial Rate : 070 BPM P-R Int : 216 ms QRS Dur : 102 ms QT Int : 430 ms P-R-T Axes : 013 023 077 degrees QTc Int : 464 ms Sinus rhythm. with 1st degree AV block. Low voltage QRS Septal infarct , age undetermined Abnormal ECG When compared with ECG of 25-APR-2019 15:27, Septal infarct is now present ST now depressed in Anterior leads Nonspecific T wave abnormality no longer evident in Inferior leads T wave inversion less evident in Anterolateral leads QT has lengthened Unconfirmed Result
[2019-05-02] MEDS ORDERED: HUMALOG ONE (12:25)
--- NOTE | 2019-05-02 15:44 | PROGRESS NOTE ---
DATE: 05/02/2019 SUBJECTIVE: Patient reports feeling much better today. Denies any fever or chills. OBJECTIVE: Vital Signs: Temperature 98.4 degrees, heart rate 102, respiratory 20, blood pressure 155/82, O2 saturation 98% on room air. General: This is a chronically ill-appearing 54-year-old female lying in bed, in no acute distress. Cardiovascular: S1, S2 heard. No murmurs, gallops, or rubs. Regular rate and rhythm. Respiratory: Minimal crackles in both pulmonary bases. Patient not using any accessory muscles or having work of breathing. Abdomen: Soft. Nontender to palpation. Bowel sounds present. No organomegaly. Extremities: No clubbing, cyanosis, or edema. Peripheral pulses present in both legs. Neurological: The patient is alert oriented x3. Moves 4 extremities. LABORATORY DATA: White cell count 12.14, hemoglobin 11.8, hematocrit 37.6 platelets 197,000. BMP reveals creatinine 1.5. ASSESSMENT AND PLAN: 1. Systolic and diastolic congestive heart failure acute on chronic. We will continue with Lasix and will restart also home medications in this case, beta-blockers, blood pressure medications. Cardiology has been consulted. We will follow recommendations. 2. History of atrial fibrillation. Patient started having atrial fibrillation again. The patient is on anticoagulation and beta blockers. We will see what Cardiology has to say. 3. Diabetes mellitus type 2. We will continue with sliding scale insulin. Accu-Chek before meals and also at bedtime. 4. Chronic kidney disease stage 3. Creatinine around baseline. We will continue with the same management. 5. Disposition. We will continue to monitor this patient closely. cc: He Caba MD
[2019-05-02] MEDS ORDERED: LASIX ONE (16:49)
[2019-05-02] MEDS ORDERED: ELIQUIS ONE (16:49)
[2019-05-02] MEDS ORDERED: PRILOSEC ONE (16:50)
[2019-05-02] MEDS ORDERED: TRANDATE ONE (16:50)
[2019-05-02] MEDS: LASIX IV SCH ×2 (17:48→21:34)
[2019-05-02] MEDS: EFFEXOR XR PO SCH (17:48)
[2019-05-02] MEDS: PRINIVIL PO SCH (17:54)
--- NOTE | 2019-05-02 18:00 | Diag Imaging Result Doc PS360 ---
CHEST-2 VIEWS - 05/02/2019 INDICATION: shortness of breath COMPARISON: 05/01/2019 FINDINGS: Lung volumes are improved. There is probably a trace right pleural effusion. No infiltrates or edema. Heart size and pulmonary vascularity is normal. IMPRESSION: Stable trace right pleural effusion. Electronically signed by Virgil Boss 05/02/2019 5:58 PM
--- NOTE | 2019-05-02 21:02 | CONSULTATION ---
DATE OF CONSULTATION: 05/02/2019 IMPRESSION: 1. Acute on chronic diastolic heart failure. Patient appears to be improving clinically with diuresis. 2. Paroxysmal atrial fibrillation. Patient is status post recent cardioversion, restoring sinus rhythm last week. She has history of previous pulmonary vein isolation procedure. She continues in sinus rhythm. 3. Hypertensive cardiovascular disease. 4. Morbid obesity. 5. Hyperlipidemia. 6. Suspect likely obstructive sleep apnea. RECOMMENDATIONS: 1. Agree with diuresis. She already appears to have improved considerably. 2. Repeat chest x-ray. 3. Continue current cardiovascular regimen, otherwise unchanged. HISTORY: This 54-year-old white female, with past history of paroxysmal atrial fibrillation, chronic diastolic heart failure, morbid obesity, hypertensive cardiovascular disease, and hyperlipidemia, was admitted with dyspnea symptoms. She relates onset of smothering symptoms yesterday. There was no chest pain. She relates shortness of breath that did not seem to be positional. There was really no tendency for orthopnea. Because of her persistent shortness of breath, she came into the emergency room and was found to have some signs of congestive heart failure. She has been diuresed with IV Lasix. She is feeling improved. She denies any palpitations. There has been no angina. PAST MEDICAL HISTORY: 1. Paroxysmal atrial fibrillation. Patient is status post previous pulmonary vein isolation procedure in the past and more recent cardioversion. 2. History of previous ablation for SVT. 3. Chronic diastolic heart failure. 4. Hypertensive cardiovascular disease. 5. Morbid obesity. 6. Hyperlipidemia. PAST SURGICAL HISTORY: Includes: 1. Removal of kidney stone. 2. Carpal tunnel release. 3. Hysterectomy. 4. Tonsillectomy. 5. Cholecystectomy. 6. Unspecified back surgery. ALLERGIES: She is allergic or intolerant to cephalexin. MEDICATIONS PRIOR TO ADMISSION: As listed. SOCIAL HISTORY: She is and disabled. She does not smoke or use alcohol. FAMILY HISTORY: Negative for premature coronary disease. REVIEW OF SYSTEMS: Pulmonary: Noteworthy for dyspnea and smothering, but negative for orthopnea. There has been no significant cough. She does have history of snoring, but has never been screened for sleep apnea. Gastrointestinal: Negative. Constitutional: Negative. Remainder of review of systems negative/noncontributory with 14 total systems reviewed. PHYSICAL EXAMINATION: General: This is a morbidly obese, middle-aged white female in no distress, on supplemental oxygen per nasal cannula. Vital Signs: Blood pressure 155/82, heart rate 102 and regular with electrocardiogram monitor showing sinus rhythm, oxygen saturation 98% on room air. HEENT: Extraocular movements appear intact. Mucous membranes are moist. Neck: Supple without jugular venous distention. There are no carotid bruits. Chest: Clear to auscultation bilaterally. Cardiac: Regular rate and rhythm without appreciable murmur or gallop. Abdomen: Obese, soft, nontender. Bowel sounds normal. Extremities: Without edema with some venous stasis changes, right greater than left. Neurologic: Exam reveals her to be alert and fully oriented. Speech is fluent. She moves all 4 extremities equally well. Skin: Warm and dry. Psychiatric: Reveals mood to be appropriate. PERTINENT DATA: A 12 lead EKG demonstrates sinus rhythm with first degree AV block, low voltage QRS. LABORATORY DATA: Includes a white blood cell count of 12.14, hematocrit 37.6, hemoglobin 11.8, platelet count 187,000. Sodium 139, potassium 4.7, chloride 98, carbon dioxide 28, BUN 32, creatinine 1.5, glucose 158. Troponin T less than 0.01. Pro B-natriuretic peptide level 4103. cc: Willie Goode MD
[2019-05-02] MEDS: LANTUS INSULIN SUBQ SCH (21:33)
[2019-05-02] MEDS: TRANDATE PO SCH (21:33)
[2019-05-03] MEDS: TAMBOCOR PO SCH ×3 (02:35→21:11)
[2019-05-03] MEDS: HUMALOG SUBQ SCH ×4 (06:06→21:11)
[2019-05-03] MEDS ORDERED: PRILOSEC PO SCH (09:00)
[2019-05-03] MEDS ORDERED: LIPITOR PO SCH ×2 (09:00→21:00)
[2019-05-03] MEDS ORDERED: HYDROCHLOROTHIAZIDE PO SCH (09:00)
[2019-05-03] MEDS ORDERED: CARDIZEM CD PO SCH (09:00)
[2019-05-03] MEDS: PRILOSEC PO SCH (10:10)
[2019-05-03] MEDS: ELIQUIS PO SCH ×2 (10:10→21:12)
[2019-05-03] MEDS: TRANDATE PO SCH ×2 (10:10→21:12)
[2019-05-03] MEDS: LASIX IV SCH (10:11)
[2019-05-03] MEDS: EFFEXOR XR PO SCH (10:12)
[2019-05-03] MEDS: PRINIVIL PO SCH (10:12)
[2019-05-03] MEDS: WELLBUTRIN XL PO SCH (10:40)
[2019-05-03] MEDS: VICTOZA SUBQ SCH (13:14)
[2019-05-03] MEDS ORDERED: INSULIN PEN NEEDLES ONE (13:31)
--- NOTE | 2019-05-03 14:50 | PROGRESS NOTE ---
DATE: 05/03/2019 SUBJECTIVE: The patient reports she is not feeling short of breath. Able to walk around in the room noticing no chest pain. No chest discomfort. OBJECTIVE: Vital Signs: Temperature 97.7 degrees, heart rate 73, respiratory rate 16, blood pressure 163/63, O2 saturation 100% on 2 L nasal cannula. General Examination: This is a 54-year- old female lying in bed, in no acute distress. Cardiovascular: S1, S2 heard. No murmurs, gallops, or rubs. Regular rate and rhythm. Respiratory: Clear bilaterally to auscultation. No work of breathing or using accessory muscles. Abdomen: Soft, nontender to palpation. Bowel sounds present. No organomegaly. Extremities: No clubbing, cyanosis, or edema. Peripheral pulses present in both legs. Neurological: Patient alert oriented x3. Moves 4 extremities. LABORATORY DATA: White cell count 12.14 hemoglobin 11.8, hematocrit 36.6, platelets 187 with no BMP today. Creatinine from yesterday was 1.5. ASSESSMENT AND PLAN: 1. Acute systolic congestive heart failure, acute on chronic. We will continue with Lasix 40 mg IV q. 12 hours. Home medication has been restarted, in this case beta-blockers and BROOKE inhibitors. Clinically, patient is doing fine. Cardiology is also following. We will follow recommendations. 2. History of atrial fibrillation. Patient actually has paroxysmal atrial fibrillation. At this point, she is in sinus rhythm. No further plans from Cardiology to do any procedure. 3. Diabetes mellitus type 2. We will continue with sliding scale insulin. Accu-Chek before meals and also at bedtime. 4. Chronic kidney disease stage 3. Creatinine at baseline. We will continue to monitor. 5. Disposition. At this point, we are going to remove oxygen supplementation and see how she does. If she does not require any oxygen and is clinically feeling better, I think we can switch Lasix IV to p.o. and send this patient to the hospital. cc: He Caba MD
--- NOTE | 2019-05-03 19:25 | PROGRESS NOTE ---
DATE: 05/03/2019 SUBJECTIVE: Patient reports feeling much better and denies any shortness of breath on room air. There has been no chest pain. OBJECTIVE: Vital Signs: Blood pressure 155/63, heart rate 73 and regular, oxygen saturation 95% on room air. Neck: There is no significant jugular venous distention. Chest: Clear to auscultation bilaterally. Cardiac: Regular rate and rhythm without appreciable murmur or gallop. There is no evidence of peripheral edema. IMPRESSION: 1. Acute on chronic diastolic heart failure, improved with diuresis. 2. Paroxysmal atrial fibrillation. Patient is status post recent cardioversion and continues in sinus rhythm on flecainide. 3. Hypertensive cardiovascular disease. Blood pressure mildly elevated. 4. Morbid obesity. 5. Hyperlipidemia. 6. Suspect likely obstructive sleep apnea. RECOMMENDATIONS: 1. Discontinue intravenous Lasix and initiate oral Lasix daily in a.m. 2. Discontinue thiazide diuretic. 3. Increase Cardizem CD to 180 mg p.o. daily. 4. Reasonable for patient to be discharged soon from a cardiovascular standpoint given clinical improvement. 5. Check basic metabolic profile this evening. cc: Willie Goode MD
[2019-05-03 19:44] LABS: CALCIUM 9.2 mg/dL (8.8-10.2); CREATININE 1.5 mg/dL (0.5-0.9); POTASSIUM 4.4 mmol/L (3.5-5.1)
[2019-05-03] MEDS: LANTUS INSULIN SUBQ SCH (21:10)
[2019-05-04] MEDS: PRILOSEC PO SCH (06:18)
[2019-05-04] MEDS: HUMALOG SUBQ SCH (06:18)
[2019-05-04 07:33] VITALS: BP 168/70
[2019-05-04] MEDS ORDERED: CARDIZEM CD PO SCH (09:00)
[2019-05-04] MEDS ORDERED: LASIX PO SCH (09:00)
[2019-05-04] MEDS: TAMBOCOR PO SCH (09:11)
[2019-05-04] MEDS: ELIQUIS PO SCH (09:13)
[2019-05-04] MEDS: WELLBUTRIN XL PO SCH (09:13)
[2019-05-04] MEDS: PRINIVIL PO SCH (09:13)
[2019-05-04] MEDS: TRANDATE PO SCH (09:15)
[2019-05-04] MEDS: EFFEXOR XR PO SCH (09:23)
[2019-05-04] MEDS: VICTOZA SUBQ SCH (09:25)
--- NOTE | 2019-05-05 07:54 | DISCHARGE SUMMARY ---
ADMISSION DATE: 05/01/2019 DISCHARGE DATE: 05/04/2019 DISCHARGE DIAGNOSES: 1. Acute systolic congestive heart failure, acute on chronic improved. 2. Paroxysmal atrial fibrillation. 3. Iron deficiency anemia. 4. Diabetes mellitus type 2. 5. Chronic kidney disease stage 3. CONSULTATIONS: Dr. Willie Goode from Cardiology. PROCEDURES: 1. Chest x-ray done on admission showed suggestion of pulmonary venous congestion likely mild interstitial edema. 2. Chest x-ray done today's after showed stable trace right pleural effusion. HOSPITAL COURSE: This is a 54-year-old female with history of systolic and diastolic congestive heart failure with iron-deficiency in atrial fibrillation who presented to the emergency department complaining of shortness of breath and dry cough that started during the night until the morning. She was discharged from the hospital 4 days prior. She had atrial fibrillation RVR, and she underwent successful DC cardioversion on 04/25. The patient is going to be admitted for evaluation and treatment of this congestive heart failure. The patient was started on Lasix IV and started feeling better. Denies any fever, chills, or shortness of breath. At this time, she is switched to oral Lasix, and the doses of Cardizem will be increased to 180 mg p.o. daily. The patient is being discharged in stable condition. DISCHARGE PHYSICAL EXAMINATION: Vital Signs: Temperature 97.7 degrees, heart rate 75, respiratory rate 17, blood pressure 160/80, and O2 saturation 96% on room air. General: This is a 54-year-old female lying in bed in no acute distress Cardiovascular: S1, S2 heard. No murmurs, gallops, or rubs. Regular rate and rhythm. Respiratory: Clear bilaterally to auscultation. No work of breathing or using accessory muscles. Abdomen: Soft, nontender to palpation. Bowel sounds present. No organomegaly. Extremities: No clubbing, cyanosis, or edema. Peripheral pulses present in both legs. Neurological: The patient is alert and oriented x3. Moves all 4 extremities. DISCHARGE DISPOSITION: 1. Home to self-care. 2. Follow up with his primary care physician in a week. DISCHARGE MEDICATIONS: 1. Lasix 40 mg 1 tablet p.o. daily. 2. Cardizem CD 180 mg 1 tablet p.o. daily. 3. Bupropion 150 mg 1 tablet p.o. daily. 4. Venlafaxine 150 mg 1 tablet p.o. daily. 5. Hydrochlorothiazide 25 mg 1 tablet p.o. daily. 6. Labetalol 200 mg p.o. b.i.d. 7. Victoza 1.8 mg subcutaneous every morning. 8. Eliquis 5 mg 1 tablet p.o. b.i.d. 9. Lipitor 20 mg 1 tablet p.o. daily. 10. Lantus 60 units subcutaneous at bedtime. 11. Prinivil 40 mg p.o. at bedtime. 12. Tambocor 50 mg p.o. b.i.d. 13. Omeprazole 40 mg 1 tablet p.o. daily. TIME SPENT: Time discharging this patient 34 minutes. cc: He Caba MD
== END 2019-05-04 11:20 | disposition home or self-care (01) | DRG 291 ==
LOC: ED 16:14 → 3N 16:15 → 1N 05-02 11:10
PROVIDERS: ATTEND Internal Medicine
CPT/HCPCS: 71010; 71020; 71045; 71046; 80048; 80053; 82550; 82948; 83880; 84484; 85025; 85610; 85730; 93005; 94760; 94761; 94799; A9270; J1815; J1940; XXXXX